=== PATIENT | female | born 1975 | race Caucasian/White ===

== ENCOUNTER → 2016-08-17 | Outpatient (CLI) | payer MEDICAID ==
[~2016-08-17] MED LIST: /DIVA50TA PO; /ESOM40CA; /ESOM40CA OR; /ESOM40CA PO; ABIL10TA; ABIL10TA OR; ABIL5TAB; ABIL5TAB OR; ABIL5TAB PO; ADV250INH INH; ALBU0.084 PO; ALBU17IN INH; ALBU83IN INH; ASPI81TA3; ASPI81TA83 OR; ASPI81TA85 PO; BENZ200C PO; CALC12502; CALCCHW12; CELE10TA PO; CIPR-250 PO; DEPA500T; DEPA500T OR; DEPA500T2; DEPA500T2 PO; DIPH25CA PO; DITR5TAB PO; DIVA500T3 PO; EFFE75CA75 OR; FEMA2.5T4 PO; FLOM5CAP PO; FLON0.05; HYDR25TA6; HYDR5TAB27 PO; IBUP800T23 PO; IBUP80TA PO; IPRASOL4 PO; LAMI25TA; LAMI25TA OR; LAMICTAL; LASI40TA PO; LETR2.5T PO; MILKSUS PO; NAPR375T; NAPR500T; NAPR500T2 PO; NEUR100C PO; NEXI40CA PO; NEXI40GR PO; NICO14DI3 TD; OMACOR; PERC10TA17 PO; PERC5TAB8 OR; PERC7.5T3 PO; PHEN200T14 PO; PHEN32.4; PHEN60TA; PHEN60TA OR; PHEN60TA9 PO; PHEN64.8; PHEN64.8 OR; PHEN64.8 PO; PRIL20CA; PRIL20CA OR; PROAAER IN; PROZ10CA; PROZ20CA; PROZ20CA OR; QUET30TA OR; QUET30XR OR; REME15TA; REME15TA OR; REME30TA; RISP1TAB3 PO; RISP1TAB41 PO; ROBA750T4 PO; SENO8.6T10 PO; SERO200T OR; SERO400T OR; SERO400T3 PO; SMZ-800T PO; SULF1TAB72 PO; TRAM50TA2 OR; TRAZ100T2 PO; TRAZ100T4 PO; TRAZ150T; TYLE325T5 PO; TYLENOL PO; VICO5TAB; VICO5TAB16 PO; VITMTA PO; VOLTAREN GEL; VOLTAREN PO; XANA0.5T PO; XANA1TAB2 PO; ZYPR5TAB2 PO; [UNRECOGNIZED DRUG - OTHER] INH; ibuprofen PO
== END ==
LOC: M PAIN 13:20
PROVIDERS: ATTEND Anesthesiology
DX: G89.29 Other chronic pain (principal); M47.817 Spondylosis without myelopathy or radiculopathy, lumbosacral region; M47.816 Spondylosis without myelopathy or radiculopathy, lumbar region; M47.812 Spondylosis without myelopathy or radiculopathy, cervical region; G40.919 Epilepsy, unspecified, intractable, without status epilepticus; G47.30 Sleep apnea, unspecified; F90.9 Attention-deficit hyperactivity disorder, unspecified type; F31.9 Bipolar disorder, unspecified; J44.9 Chronic obstructive pulmonary disease, unspecified; M19.90 Unspecified osteoarthritis, unspecified site; G43.909 Migraine, unspecified, not intractable, without status migrainosus; K21.9 Gastro-esophageal reflux disease without esophagitis; I49.9 Cardiac arrhythmia, unspecified; E66.9 Obesity, unspecified; Z68.41 Body mass index [BMI] 40.0-44.9, adult; Z88.0 Allergy status to penicillin; Z88.5 Allergy status to narcotic agent; Z91.030 Bee allergy status; F17.200 Nicotine dependence, unspecified, uncomplicated; Z79.899 Other long term (current) drug therapy; Z85.3 Personal history of malignant neoplasm of breast

== ENCOUNTER 2016-09-13 22:33 | Emergency (ER) | payer MEDICAID ==
[~2016-09-13] VITALS: Ht 167.6 cm; Wt 122.5 kg
[2016-09-13] MEDS ORDERED: PHEN64.8 PO ×2 (22:48)
[2016-09-13] MEDS ORDERED: DEPA1TAB3 PO (22:48)
[2016-09-13] MEDS ORDERED: letrozole PO (22:48)
[2016-09-13] MEDS ORDERED: COMBAER6 PO (22:48)
[2016-09-13] MEDS ORDERED: TRAZ50TA4 PO (22:48)
[2016-09-13] MEDS ORDERED: ANAS1TAB PO (22:48)
[2016-09-14 02:36] VITALS: BP 138/95
[2016-09-14] MEDS ORDERED: KETOROLAC 60 MG/2 ML VIAL (J1885) IM ONE (05:30)
[2016-09-14] MEDS ORDERED: KETOROLAC 30 MG/ML VIAL (J1885) As Ordered ONE (05:49)
--- NOTE | 2016-09-14 08:27 | REP ---
Clinical: Trauma. Injury. Technique: AP, lateral, bilateral oblique views left hand. Findings: Advanced osteoarthritic degenerative changes primarily involving the interphalangeal joints is appreciated. No obvious acute fracture or dislocation identified. No subcutaneous emphysema or radiodense foreign body. Impression: 1. 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 2. No obvious acute fracture or dislocation. Signed by Montrell Ruby MD 09/14/2016 08:19 A
== END 2016-09-14 06:47 | disposition home or self-care (01) ==
LOC: M ED 23:36
DX: S60.222A Contusion of left hand, initial encounter (principal); W22.8XXA Striking against or struck by other objects, initial encounter; Y92.018 Other place in single-family (private) house as the place of occurrence of the external cause; Y93.89 Activity, other specified; Y99.8 Other external cause status; J45.909 Unspecified asthma, uncomplicated; G40.909 Epilepsy, unspecified, not intractable, without status epilepticus; Z79.899 Other long term (current) drug therapy
CPT/HCPCS: 73130; 96372; 99282; J1885

== ENCOUNTER → 2016-09-19 | Outpatient (CLI) | payer MEDICAID ==
[~2016-09-19] MED LIST changes: +ANAS1TAB PO; +BUPIVACAINE HCL 0.25% 30 ML VIAL As Ordered ONE; +COMBAER6 PO; +DEPA1TAB3 PO; +ISOVUE-M 300 61% 15ML VIAL (Q9967) As Ordered ONE; +LIDOCAINE 1% SDV INJ 30 ML VIAL As Ordered ONE; +TRAZ50TA4 PO; +ePHEDrine SULFATE 25 MG/5 ML(5MG/ML) SYRINGE As Ordered ONE; +letrozole PO
--- NOTE | 2016-09-19 13:58 | REP ---
PARTIAL LUMBAR SPINE SERIES: Four views. HISTORY: Injection procedure for pain. 34 seconds of fluoroscopy time is reported. FINDINGS: A sequence of four last image hold fluoro spot images of the lumbar spine are presented documenting various needle positions and contrast injections associated with lumbar spine facet injection procedure. Signed by Kenny Sandoval MD 09/19/2016 06:05 P
--- NOTE | 2016-09-24 23:57 | ECWPNPC ---
PATIENT NAME: STEPHANIE BAIRES : 1975 GENDER: FEMALE VISIT DATE: 09/19/2016 DISCHARGE DATE: 09/19/16 1142 VISIT LOCKED DATE TIME: PHYSICIAN: CINTHYA DELGADO RESOURCE: CINTHYA DELGADO REASON FOR APPOINTMENT 1. LFBD HISTORY OF PRESENT ILLNESS HISTORY OF PRESENT ILLNESS: PAIN THE PATIENT DESCRIBES THE PAIN... FALL RISK SCREENING: SCREENING :NO FALLS IN THE PAST YEAR CURRENT MEDICATIONS TAKING CYCLOBENZAPRINE HCL 10 MG TABLET 1 TABLET ORALLY FOR SPASMS AMD PAIN THREE TIMES A DAY NEEDED MDD3, NOTES: 09-18-162099 TAKING EPIPEN 2-LATOYA 0.3 MG/0.3ML (1:1000) DEVICE INTRAMUSCULAR TAKING TRAZODONE 50 50MG TABLET TAB ORAL QHS NEEDED, NOTES: 09-18-162099 TAKING ANASTROZOLE 1 MG TABLET 1 TABLET ORALLY ONCE A DAY, NOTES: 09-20-15729 TAKING FLUOXETINE HCL 20 MG CAPSULE 1 CAPSULE IN THE MORNING ORALLY ONCE A DAY, NOTES: 09-19-16729 TAKING PHENOBARBITAL 64.8 MG TABLET 1 TABLET ORALLY THREE TIMES DAILY, NOTES: 09-19-16729 TAKING DEPAKOTE 500 MG TABLET DELAYED RELEASE TAKE TWO TABLETS BY MOUTH TWICE A DAY DIRECTED , NOTES: 09-19-16729 NOT-TAKING OMEPRAZOLE 40 MG CAPSULE DELAYED RELEASE 1 CAPSULE ORALLY ONCE A DAY NOT-TAKING COMBIVENT RESPIMAT 20-100 MCG/ACT AEROSOL SOLUTION 1 PUFF FOUR TIMES DAILY NEEDED DISCONTINUED NEXIUM 40 MG CAPSULE DELAYED RELEASE 1 CAPSULE ORALLY ONCE A DAY MEDICATION LIST REVIEWED AND RECONCILED WITH THE PATIENT PAST MEDICAL HISTORY ALLERGY TO BEE BREAST CANCER STAGE 1 SLEEP APNEA- USES CPAP MACHINE @2% 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 MORBID OBESITY CHRONIC PAIN ADHD BIPOLAR ASTHMA, COPD ATHRITIS DEPRESSION MIGRAINES GERD IRREGULAR HEART BEAT KIDNEY STONES ALLERGIES PENICILLIN (FOR ALLERGIES USE ONLY) CODEINE PHOSPHATE (FOR ALLERGIES USE ONLY): NAUSEA/VOMITING: SIDE EFFECTS TRAMADOL HCL: SEIZURES: ALLERGY BEE STINGS: SWELLING: ALLERGY SOCIAL HISTORY GENERAL: PAIN CLINIC PFS, CLERGY, PUBLIC HEALTH REFERRALS CLERGY REFERRAL NEEDED?NO WAS THE PROVIDER NOTIFIED OF ANY PERTINENT INFO?NO PFS REFERRAL NEEDED?NO PUBLIC HEALTH REFERRAL NEEDED?NO PATIENT: ____. REVIEW OF SYSTEMS CONSTITUTIONAL: ANY CHANGE IN YOUR MEDICAL CONDITION? NO . CHILLS NO . FEVER NO . INFECTION: DO YOU HAVE NEW INFECTIONS? NO . DO YOU HAVE HISTORY OF MRSA? NO . MUSCULOSKELETAL: ANY NEW PATTERNS OF PAIN OR NUMBNESS? NO . GASTROENTEROLOGY: ANY NEW CHANGE IN BOWEL CONTROL? NO . GENITOURINARY: ANY NEW CHANGE IN BLADDER CONTROL? YES . IS THERE A CHANCE YOU COULD BE ? NO . HEMATOLOGY/LYMPH: DO YOU TAKE ANY BLOOD THINNERS? (FOR EXAMPLE- COUMADIN, PLAVIX, AGGRENOX, PLATEL, PRADAXA, OR XARELTO) NO . WHEN WAS YOUR LAST DOSE? DATE: TIME: . NEUROLOGY: HAVE YOU FALLEN IN THE PAST 6 MONTHS? NO . ANY NEW EXTREMITY NUMBNESS OR WEAKNESS? NO . CARDIOLOGY: DO YOU HAVE A PACEMAKER OR DEFIBRILLATOR? NO . RESPIRATORY: HAVE YOU BEEN SICK IN THE PAST WEEK? NO . FEVER NO . FLU LIKE SYMPTOMS? NO . COUGH NO . INTEGUMENTARY: DO YOU HAVE ANY RASHES OR OPEN SORES? NO . ALLERGIC/IMMUNO: ARE YOU ALLERGIC TO SHELLFISH OR IV DYE? NO . ANY NEW ALLERGIES? NO . PSYCHIATRIC: DO YOU HAVE THOUGHTS OF HURTING YOURSELF OR SOMEONE ELSE? NO . ARE YOU ABUSED, NEGLECTED, OR IN AN UNSAFE ENVIRONMENT? NO . ENDOCRINOLOGY: ARE YOU DIABETIC? NO . OTHER: DO YOU NEED ANY PRESCRIPTIONS? NO . IF YES, PLEASE LIST: ____ . ANY NEW PROBLEMS WITH YOUR MEDICATIONS? NO . WHEN DID YOU LAST EAT? LAST NIGHT . WHEN DID YOU LAST DRINK? 09-19-16 0730 . WHAT DID YOU LAST DRINK? WATER . NAME OF PERSON DRIVING YOU HOME? FRIEND . DO YOU HAVE ANY OTHER QUESTIONS OR CONCERNS NO . REVIEWED BY: PROVIDER: . VITAL SIGNS WT 270.6 LBS, HT 5'6", BMI 43.67 INDEX, BP 138/87 MM HG, HR 91 /MIN, RR 18 /MIN, TEMP 97.2 F, OXYGEN SAT % 94%, NA INITIALS SC 09:23, REVIEWED BY: AAN. ASSESSMENTS SPONDYLOSIS WITHOUT MYELOPATHY OR RADICULOPATHY, LUMBAR REGION - M47.816 (PRIMARY) SPONDYLOSIS WITHOUT MYELOPATHY OR RADICULOPATHY, LUMBOSACRAL REGION - M47.817 PROCEDURES PN LUMBAR FACET BLOCK DIAGNOSTIC PRE PROCEDURE DIAGNOSIS LUMBAR SPONDYLOSIS, LUMBOSACRAL SPONDYLOSIS POST PROCEDURE DIAGNOSIS LUMBAR SPONDYLOSIS, LUMBOSACRAL SPONDYLOSIS PROCEDURE BILATERAL L4-L5 AND BILATERAL L5-S1 FACET BLOCK DIAGNOSTIC NUMBER [address] CINTHYA DELGADO ELECTRONIC SEMICONDUCTOR PROCESSOR NONE ANESTHESIA LOCAL PRE PROCEDURE NOTE THE PATIENT WITH HISTORY OF CHRONIC LOW BACK PAIN. I EVALUATED THE PATIENT AND REVIEWED THE CHART. I WENT OVER THE RISKS, ALTERNATIVES, AND BENEFITS ASSOCIATED WITH THIS PROCEDURE. THE PATIENT WOULD LIKE TO PROCEED AND GAVE CONSENT TO PERFORM THE PROCEDURE. AGREED WITH THE PATIENT WE ARE DOING THIS PROCEDURE TO DETERMINE IF THE PATIENT IS A CANDIDATE FOR A RADIOFREQUENCY ABLATION OF THE FACETS JOINTS. THE PATIENT DENIES UNEXPLAINABLE WEIGHT LOSS, FEVER, CHILLS, OR NEW CHANGES IN URINARY OR BOWEL CONTROL DESCRIPTION OF PROCEDURE THE PATIENT WAS BROUGHT TO THE PROCEDURE ROOM AND PLACED IN THE PRONE POSITION. THE LUMBOSACRAL AREA WAS CLEANED WITH CHLORAPREP SOLUTION AND DRAPED ASEPTICALLY. THE PROCEDURE WAS DONE UNDER STERILE CONDITIONS. I CHECKED LATERALITY AND THE LEVEL WHERE THE PROCEDURE WAS GOING TO BE PERFORMED WITH THE PATIENT AND THE SUPPORTING STAFF AT THE MOMENT OF THE TIME OUT IN THE PROCEDURE ROOM. UNDER FLUOROSCOPIC GUIDANCE, TARGETS WERE SELECTED AT THE INTERSECTION OF THE RIGHT AND LEFT TRANSVERSE PROCESS OF L4, L5 AND ALA OF S1 WITH ITS RESPECTIVE SUPERIOR ARTICULAR PROCESS. LIDOCAINE WAS USED TO NUMB THE SKIN AND THE SUBCUTANEOUS TISSUE BELOW IT. SPINAL NEEDLE, 22-GAUGE WAS ADVANCED UNDER FLUOROSCOPIC GUIDANCE AND FOLLOWING PATIENT FEEDBACK UNTIL THE TARGETS WERE REACHED. POSITION OF THE NEEDLES WAS VERIFIED WITH AP AND LATERAL VIEWS. AFTER PROPER POSITION OF THE NEEDLES WAS ACHIEVED, ISOVUE-M DYE 30% 0.1 ML WAS INJECTED AT EACH SITE SHOWING ADEQUATE SPREAD OF THE DYE. THEN A SOLUTION OF 0.4 ML OF BUPIVACAINE 0.25% WAS INJECTED AT EACH SITE. THERE WAS NO EVIDENCE OF BLOOD, PARESTHESIA OR CEREBROSPINAL FLUID DURING THE PROCEDURE. THE PATIENT WAS SENT TO THE RECOVERY ROOM. THE PATIENT WAS MOVING THE EXTREMITIES AND DOING WELL. THERE WAS NO COMPLICATION DURING THE PROCEDURE. FLUOROSCOPY TIME WAS 34 SECONDS POST PROCEDURE NOTE THE PATIENT WILL DOCUMENT HIS PAIN LEVEL AND RESPONSE TO THIS PROCEDURE EVERY 30 MINUTES. THE PATIENT WILL BE SEEN IN A FOLLOW UP IN THE NEXT FEW WEEKS. FURTHER DETERMINATION FOR HIS CASE WILL BE DONE AT THE NEXT VISIT. INSTRUCTIONS WERE GIVEN, QUESTIONS WERE ANSWERED, AND THE PATIENT EXPRESSED UNDERSTANDING AND AGREED WITH THE PLAN. I, JALEN YOUNGER, DOCUMENTED THE ABOVE INFORMATION ACTING A SCRIBE FOR DR. DELGADO. I, DR. DELGADO, HAVE REVIEWED THE ABOVE DOCUMENT, SCRIBED BY JALEN YOUNGER, AND I VERIFY THAT IT IS ACCURATE DIAGNOSTIC IMAGING SMC FACET BLOCK (PAIN)[id number] PROCEDURE CODES 15770 INJ PARAVERT F JNT L/S 1 LEV 56718 INJ PARAVERT F JNT L/S 2 LEV 6045F RADXPS IN END [id number] PXD DISPOSITION & COMMUNICATION FOLLOW UP 3 WEEKS ELECTRONICALLY SIGNED BY CINTHYA DELGADO MD ON 09/24/2016 AT 09:11 PM EDT DISCLAIMER : THIS IS A VISIT SUMMARY EXTRACTED FROM THE [employer] CHART. IT IS NOT A COPY OF THE [employer] PROGRESS NOTE. MTDD
== END ==
LOC: M PAIN 09:00
PROVIDERS: ATTEND Anesthesiology
DX: G89.29 Other chronic pain (principal); M54.5 Low back pain; M47.816 Spondylosis without myelopathy or radiculopathy, lumbar region; M47.817 Spondylosis without myelopathy or radiculopathy, lumbosacral region; Z79.899 Other long term (current) drug therapy; Z88.0 Allergy status to penicillin; Z88.5 Allergy status to narcotic agent; Z88.8 Allergy status to other drugs, medicaments and biological substances; Z91.030 Bee allergy status; J44.9 Chronic obstructive pulmonary disease, unspecified; G40.909 Epilepsy, unspecified, not intractable, without status epilepticus; F31.9 Bipolar disorder, unspecified
CPT/HCPCS: 64493; 64494; Q9967

== ENCOUNTER → 2016-10-11 | Outpatient (CLI) | payer MEDICAID ==
[~2016-10-11] MED LIST changes: -BUPIVACAINE HCL 0.25% 30 ML VIAL As Ordered ONE; -ISOVUE-M 300 61% 15ML VIAL (Q9967) As Ordered ONE; -LIDOCAINE 1% SDV INJ 30 ML VIAL As Ordered ONE; -ePHEDrine SULFATE 25 MG/5 ML(5MG/ML) SYRINGE As Ordered ONE
--- NOTE | 2016-10-16 00:13 | ECWPNPC ---
PATIENT NAME: STEPHANIE BAIRES : 1975 GENDER: FEMALE VISIT DATE: 10/11/2016 DISCHARGE DATE: 10/11/16 1646 VISIT LOCKED DATE TIME: PHYSICIAN: CINTHYA DELGADO RESOURCE: CINTHYA DELGADO REASON FOR APPOINTMENT 1. LOW BACK PAIN HISTORY OF PRESENT ILLNESS HISTORY OF PRESENT ILLNESS: PAIN THE PATIENT DESCRIBES THE PAIN... 41 YEAR OLD FEMALE PATIENT WITH HISTORY OF CHRONIC LOW BACK PAIN. PATIENT DESCRIBES THE PAIN SHARP, STABBING, TENDER, AND HAVING IT ALL THE TIME WITH A PAIN SCORE OF 10/10. PATIENT DECEIVED A DIAGNOSTIC LUMBAR FACET BLOCK ON 09/19/16 AND HAD OVER 50% RELIEF FOR SEVERAL HOURS. PATIENT IS CURRENTLY USING CYCLOBENZAPRINE FOR THE MUSCLE SPASMS AND PAIN. PATIENT STATES THAT SHE HAS TRIED IBUPROFEN AND NAPROXEN AND THEY HAVE NOT HELPED WITH PAIN RELIEF. PATIENT DENIES UNEXPLAINABLE WEIGHT LOSS, FEVER, CHILLS, NEW CHANGES ON HER URINARY OR BOWEL CONTROL. FALL RISK SCREENING: SCREENING :NO FALLS IN THE PAST YEAR CURRENT MEDICATIONS TAKING CYCLOBENZAPRINE HCL 10 MG TABLET 1 TABLET ORALLY FOR SPASMS AMD PAIN THREE TIMES A DAY NEEDED MDD3, NOTES: NOT HELPING AT ALL TAKING TRAZODONE 50 50MG TABLET TAB ORAL QHS NEEDED, NOTES: DOES NOT WORK TAKING ANASTROZOLE 1 MG TABLET 1 TABLET ORALLY ONCE A DAY TAKING FLUOXETINE HCL 20 MG CAPSULE 1 CAPSULE IN THE MORNING ORALLY ONCE A DAY TAKING PHENOBARBITAL 64.8 MG TABLET 1 TABLET ORALLY THREE TIMES DAILY TAKING DEPAKOTE 500 MG TABLET DELAYED RELEASE TAKE TWO TABLETS BY MOUTH TWICE A DAY DIRECTED TAKING OMEPRAZOLE 40 MG CAPSULE DELAYED RELEASE 1 CAPSULE ORALLY ONCE A DAY TAKING EPIPEN 2-LATOYA 0.3 MG/0.3ML (1:1000) DEVICE ONE APPLICATION INTRAMUSCULAR DIRECTED TAKING COMBIVENT RESPIMAT 20-100 MCG/ACT AEROSOL SOLUTION 1 PUFF FOUR TIMES DAILY NEEDED MEDICATION LIST REVIEWED AND RECONCILED WITH THE PATIENT PAST MEDICAL HISTORY ALLERGY TO BEE BREAST CANCER STAGE 1 SLEEP APNEA- USES CPAP MACHINE @2% 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 MORBID OBESITY CHRONIC PAIN ADHD BIPOLAR ASTHMA, COPD ATHRITIS DEPRESSION MIGRAINES GERD IRREGULAR HEART BEAT KIDNEY STONES ALLERGIES PENICILLIN (FOR ALLERGIES USE ONLY) CODEINE PHOSPHATE (FOR ALLERGIES USE ONLY): NAUSEA/VOMITING: SIDE EFFECTS TRAMADOL HCL: SEIZURES: ALLERGY BEE STINGS: SWELLING: ALLERGY PLASTIC TAPE: ITCHING: ALLERGY SURGICAL HISTORY HYSTERECTOMY CHOLESTECTOMY APPENDECTOMY RIGHT TOTAL KNEE CYSTOSCOPY, URETEROSCOPY, STENT PLACEMENT 07/29/14 LEFT BREAST REMOVAL 07/16/15 RIGHT KNEE SURGERY 2006,2007 TEETH EXTRACTIONS FAMILY HISTORY FATHER: 59 YRS, DIAGNOSED WITH CANCER MOTHER: ALIVE 62 YRS, DIAGNOSED WITH DIABETES, CANCER 4DAUGHTER(S) - HEALTHY. FATHER-RECTAL CA MOTHER--UTERINE CA. SOCIAL HISTORY GENERAL: PAIN CLINIC PFS, CLERGY, PUBLIC HEALTH REFERRALS CLERGY REFERRAL NEEDED?NO WAS THE PROVIDER NOTIFIED OF ANY PERTINENT INFO?NO PFS REFERRAL NEEDED?NO PUBLIC HEALTH REFERRAL NEEDED?NO PATIENT: ____. HOSPITALIZATION/MAJOR DIAGNOSTIC PROCEDURE MENTAL HEALTH IRREGUALAR HEART RATE REVIEW OF SYSTEMS CONSTITUTIONAL: ANY CHANGE IN YOUR MEDICAL CONDITION? NO . CHILLS NO . FEVER NO . INFECTION: DO YOU HAVE NEW INFECTIONS? NO . DO YOU HAVE HISTORY OF MRSA? NO . MUSCULOSKELETAL: ANY NEW PATTERNS OF PAIN OR NUMBNESS? NO . GASTROENTEROLOGY: ANY NEW CHANGE IN BOWEL CONTROL? NO . GENITOURINARY: ANY NEW CHANGE IN BLADDER CONTROL? NO . IS THERE A CHANCE YOU COULD BE ? NO . HEMATOLOGY/LYMPH: DO YOU TAKE ANY BLOOD THINNERS? (FOR EXAMPLE- COUMADIN, PLAVIX, AGGRENOX, PLATEL, PRADAXA, OR XARELTO) NO . WHEN WAS YOUR LAST DOSE? DATE: TIME: . NEUROLOGY: HAVE YOU FALLEN IN THE PAST 6 MONTHS? NO . ANY NEW EXTREMITY NUMBNESS OR WEAKNESS? NO . CARDIOLOGY: DO YOU HAVE A PACEMAKER OR DEFIBRILLATOR? NO . RESPIRATORY: HAVE YOU BEEN SICK IN THE PAST WEEK? NO . FEVER NO . FLU LIKE SYMPTOMS? NO . COUGH NO . INTEGUMENTARY: DO YOU HAVE ANY RASHES OR OPEN SORES? NO . ALLERGIC/IMMUNO: ARE YOU ALLERGIC TO SHELLFISH OR IV DYE? NO . ANY NEW ALLERGIES? NO . PSYCHIATRIC: DO YOU HAVE THOUGHTS OF HURTING YOURSELF OR SOMEONE ELSE? NO . ARE YOU ABUSED, NEGLECTED, OR IN AN UNSAFE ENVIRONMENT? NO . ENDOCRINOLOGY: ARE YOU DIABETIC? NO . OTHER: DO YOU NEED ANY PRESCRIPTIONS? NO . IF YES, PLEASE LIST: ____ . ANY NEW PROBLEMS WITH YOUR MEDICATIONS? NO . WHEN DID YOU LAST EAT? ____ . WHEN DID YOU LAST DRINK? ____ . WHAT DID YOU LAST DRINK? ____ . NAME OF PERSON DRIVING YOU HOME? ____ . DO YOU HAVE ANY OTHER QUESTIONS OR CONCERNS NO . REVIEWED BY: PROVIDER: CINTHYA DELGADO MD . VITAL SIGNS WT 268.2 LBS, HT 5'6", BMI 43.28 INDEX, BP 151/87 MM HG, HR 105 /MIN, RR 16 /MIN, TEMP 96.5 F, OXYGEN SAT % 94%, NA INITIALS TL 1445. EXAMINATION : PATIENT IS ALERT O X 3 AND COOPERATIVE. TENDERNESS IN THE LOWER BACK AND PARASPINAL MUSCLE GROUP. MRI OF THE LUMBAR SPINE DONE ON 03/03/16 SHOWS MILD DEGNERATIVE DISC DISEASE AT L1-L2 AND L2-L3 ALONG WITH OSTEOARTHRITIC CHANGES IN THE FACET JOINTS. ASSESSMENTS SPONDYLOSIS WITHOUT MYELOPATHY OR RADICULOPATHY, LUMBAR REGION - M47.816 (PRIMARY) SPONDYLOSIS WITHOUT MYELOPATHY OR RADICULOPATHY, LUMBOSACRAL REGION - M47.817 MYALGIA - M79.1 TREATMENT SPONDYLOSIS WITHOUT MYELOPATHY OR RADICULOPATHY, LUMBAR REGION NOTES: WE DISCUSSED SEVERAL ISSUES WITH MRS. BAIRES'S PAIN MANAGEMENT CASE. AT THIS TIME THE PATIENT WILL USE CYCLOBENZAPRINE AT NIGHT TO AID IN SLEEPING AND THE MUSCLE SPASMS AND CELEBREX FOR THE SOMATIC PAIN THROUGHOUT THE DAY. PATIENT WAS ADVISED TO STOP THE MEDICATION IF ANY ADVERSE SIDE EFFECTS. WE DISCUSSED MOVING FORWARD WITH THE SECOND DIAGNOSTIC BLOCK TO MOVE FORWARD WITH A RADIOFREQUENCY. WE DISCUSSED THE RISKS, BENENFITS, AND ALTNERATIVES OF THE MEDICATIONS AND THE PATIENT WOULD LIKE TO PROCEED AT THIS TIME. INSTRUCTIONS WERE GIVEN, QUESTIONS WERE ANSWERED, PATIENT REPORTS UNDERSTANDING AND AGREES WITH THE PLAN. I, JALEN YOUNGER, DOCUMENTED THE ABOVE INFORMATION ACTING A SCRIBE FOR DR. DELGADO. I HAVE REVIEWED THE ABOVE DOCUMENT, WRITTEN BY JALEN GOMEZ AND I VERIFY THAT IT IS ACCURATE. OTHERS REFILL CYCLOBENZAPRINE HCL TABLET, 10 MG, 1 TABLET, ORALLY FOR SPASMS AMD PAIN, BEFORE BEDTIME, 30 DAY(S), 30, REFILLS 2, NOTES: NOT HELPING AT ALL START CELEBREX CAPSULE, 200 MG, 1 CAPSULE WITH FOOD, ORALLY FOR PAIN, ONCE A DAY MDD1, 30 DAY(S), 30, REFILLS 1 PREVENTIVE MEDICINE REVIEWED FACET INFO AND GAVE PT PREPROCEDURE CARE INSTRUCTIONS. PROCEDURE CODES FA211 ESTABILISHED PATIENT [facility] FACILITY CHARGE G8427 DOC MEDS VERIFIED W/PT OR RE G8730 PAIN ASSESS POS TOOL F/U PLAN DOC DISPOSITION & COMMUNICATION FOLLOW UP LFBD AFTER APPROVAL ELECTRONICALLY SIGNED BY CINTHYA DELGADO MD ON 10/15/2016 AT 12:29 PM EDT DISCLAIMER : THIS IS A VISIT SUMMARY EXTRACTED FROM THE [employer] CHART. IT IS NOT A COPY OF THE [employer] PROGRESS NOTE. MTDD
== END ==
LOC: M PAIN 14:20
PROVIDERS: ATTEND Anesthesiology
DX: M47.816 Spondylosis without myelopathy or radiculopathy, lumbar region (principal); M47.817 Spondylosis without myelopathy or radiculopathy, lumbosacral region; M79.1 Myalgia; M54.5 Low back pain; G89.29 Other chronic pain; Z79.891 Long term (current) use of opiate analgesic; J44.9 Chronic obstructive pulmonary disease, unspecified; G47.33 Obstructive sleep apnea (adult) (pediatric); G40.909 Epilepsy, unspecified, not intractable, without status epilepticus; F31.9 Bipolar disorder, unspecified; Z79.899 Other long term (current) drug therapy; Z88.0 Allergy status to penicillin; Z88.5 Allergy status to narcotic agent; Z88.8 Allergy status to other drugs, medicaments and biological substances; Z91.030 Bee allergy status; Z91.040 Latex allergy status

== ENCOUNTER → 2016-10-24 | Outpatient (CLI) | payer MEDICAID ==
[~2016-10-24] MED LIST changes: +BUPIVACAINE HCL 0.25% 30 ML VIAL As Ordered ONE; +ISOVUE-M 300 61% 15ML VIAL (Q9967) As Ordered ONE; +LIDOCAINE 1% SDV INJ 30 ML VIAL As Ordered ONE; +ZOFR4TAB3 PO
--- NOTE | 2016-10-24 16:08 | REP ---
Partial lumbar spine series: Two views: History: Lumbar spine facet injection for pain. 28 seconds of fluoroscopy time is reported. Findings: A sequence of two fluoroscopically obtained intraprocedural spot radiographs of the lumbar spine document various right facet needle positions and contrast injections associated with facet injection procedure. Signed by Kenny Sandoval MD 10/24/2016 04:40 P
--- NOTE | 2016-11-07 01:20 | ECWPNPC ---
PATIENT NAME: STEPHANIE BAIRES : 1975 GENDER: FEMALE VISIT DATE: 10/24/2016 DISCHARGE DATE: 10/24/16 1337 VISIT LOCKED DATE TIME: PHYSICIAN: CINTHYA DELGADO RESOURCE: CINTHYA DELGADO REASON FOR APPOINTMENT 1. LFBD #2 HISTORY OF PRESENT ILLNESS HISTORY OF PRESENT ILLNESS: PAIN THE PATIENT DESCRIBES THE PAIN... FALL RISK SCREENING: SCREENING :NO FALLS IN THE PAST YEAR CURRENT MEDICATIONS TAKING TRAZODONE 50 50MG TABLET TAB ORAL QHS NEEDED, NOTES: 10-23-162099 TAKING FLUOXETINE HCL 20 MG CAPSULE 1 CAPSULE IN THE MORNING ORALLY ONCE A DAY, NOTES: 10-24-16899 TAKING PHENOBARBITAL 64.8 MG TABLET 1 TABLET ORALLY THREE TIMES DAILY, NOTES: 10-23-162099 TAKING DEPAKOTE 500 MG TABLET DELAYED RELEASE TAKE TWO TABLETS BY MOUTH TWICE A DAY DIRECTED , NOTES: 10-23-16899 TAKING OMEPRAZOLE 40 MG CAPSULE DELAYED RELEASE 1 CAPSULE ORALLY ONCE A DAY, NOTES: 10-24-16899 TAKING EPIPEN 2-LATOYA 0.3 MG/0.3ML (1:1000) DEVICE ONE APPLICATION INTRAMUSCULAR DIRECTED TAKING COMBIVENT RESPIMAT 20-100 MCG/ACT AEROSOL SOLUTION 1 PUFF FOUR TIMES DAILY NEEDED, NOTES: NONE NEEDED TAKING CYCLOBENZAPRINE HCL 10 MG TABLET 1 TABLET ORALLY FOR SPASMS AMD PAIN BEFORE BEDTIME, NOTES: 10-23-162099 TAKING CELEBREX 200 MG CAPSULE 1 CAPSULE WITH FOOD ORALLY FOR PAIN ONCE A DAY MDD1, NOTES: 10-23-162099 TAKING IBUPROFEN 800 MG TABLET 1 TABLET WITH FOOD OR MILK ORALLY BID NEEDED FOR PAIN MDD2, NOTES: NONE NOT WORKING TAKING ANASTROZOLE 1 MG TABLET 1 TABLET ORALLY ONCE A DAY, NOTES: 10-24-16899 DISCONTINUED TRAZODONE HCL 50 MG TABLET 1 TABLET AT BEDTIME NEEDED ORALLY QHS MEDICATION LIST REVIEWED AND RECONCILED WITH THE PATIENT PAST MEDICAL HISTORY ALLERGY TO BEE BREAST CANCER STAGE 1 SLEEP APNEA- USES CPAP MACHINE @2% 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 NO . CHILLS NO . FEVER NO . INFECTION: DO YOU HAVE NEW INFECTIONS? NO . DO YOU HAVE HISTORY OF MRSA? NO . MUSCULOSKELETAL: ANY NEW PATTERNS OF PAIN OR NUMBNESS? NO . GASTROENTEROLOGY: ANY NEW CHANGE IN BOWEL CONTROL? NO . GENITOURINARY: ANY NEW CHANGE IN BLADDER CONTROL? NO . IS THERE A CHANCE YOU COULD BE ? NO . HEMATOLOGY/LYMPH: DO YOU TAKE ANY BLOOD THINNERS? (FOR EXAMPLE- COUMADIN, PLAVIX, AGGRENOX, PLATEL, PRADAXA, OR XARELTO) NO . WHEN WAS YOUR LAST DOSE? DATE: TIME: . NEUROLOGY: HAVE YOU FALLEN IN THE PAST 6 MONTHS? NO . ANY NEW EXTREMITY NUMBNESS OR WEAKNESS? NO . CARDIOLOGY: DO YOU HAVE A PACEMAKER OR DEFIBRILLATOR? NO . RESPIRATORY: HAVE YOU BEEN SICK IN THE PAST WEEK? NO . FEVER NO . FLU LIKE SYMPTOMS? NO . COUGH NO . INTEGUMENTARY: DO YOU HAVE ANY RASHES OR OPEN SORES? NO . ALLERGIC/IMMUNO: ARE YOU ALLERGIC TO SHELLFISH OR IV DYE? NO . ANY NEW ALLERGIES? NO . PSYCHIATRIC: DO YOU HAVE THOUGHTS OF HURTING YOURSELF OR SOMEONE ELSE? NO . ARE YOU ABUSED, NEGLECTED, OR IN AN UNSAFE ENVIRONMENT? NO . ENDOCRINOLOGY: ARE YOU DIABETIC? NO . OTHER: DO YOU NEED ANY PRESCRIPTIONS? NO . IF YES, PLEASE LIST: ____ . ANY NEW PROBLEMS WITH YOUR MEDICATIONS? NO . WHEN DID YOU LAST EAT? 10-23-16 PM . WHEN DID YOU LAST DRINK? 10-24-16 0900 . WHAT DID YOU LAST DRINK? [employer] DEW . NAME OF PERSON DRIVING YOU HOME? TRANSPORTATION . DO YOU HAVE ANY OTHER QUESTIONS OR CONCERNS NO . REVIEWED BY: PROVIDER: . VITAL SIGNS WT 268.2 LBS, HT 5'6", BMI 43.28 INDEX, BP 136/90 MM HG, HR 88 /MIN, RR 18 /MIN, TEMP 96.6 F, OXYGEN SAT % 94%, NA INITIALS SC 11:45, REVIEWED BY: CM. ASSESSMENTS SPONDYLOSIS WITHOUT MYELOPATHY OR RADICULOPATHY, LUMBOSACRAL REGION - M47.817 (PRIMARY) SPONDYLOSIS WITHOUT MYELOPATHY OR RADICULOPATHY, LUMBAR REGION - M47.816 PROCEDURES PN LUMBAR FACET BLOCK DIAGNOSTIC PRE PROCEDURE DIAGNOSIS LUMBAR SPONDYLOSIS, LUMBOSACRAL SPONDYLOSIS POST PROCEDURE DIAGNOSIS LUMBAR SPONDYLOSIS, LUMBOSACRAL SPONDYLOSIS PROCEDURE RIGHT L4-L5 AND L5-S1 FACET BLOCK DIAGNOSTIC NUMBER #[address] CINTHYA DELGADO HORTICULTURAL AGENT NONE ANESTHESIA LOCAL PRE PROCEDURE NOTE THE PATIENT WITH HISTORY OF CHRONIC LOW BACK PAIN. I EVALUATED THE PATIENT AND REVIEWED THE CHART. I WENT OVER THE RISKS, ALTERNATIVES, AND BENEFITS ASSOCIATED WITH THIS PROCEDURE. THE PATIENT WOULD LIKE TO PROCEED AND GAVE CONSENT TO PERFORM THE PROCEDURE. AGREED WITH THE PATIENT WE ARE DOING THIS PROCEDURE TO DETERMINE IF THE PATIENT IS A CANDIDATE FOR A RADIOFREQUENCY ABLATION OF THE FACETS JOINTS. THE PATIENT DENIES UNEXPLAINABLE WEIGHT LOSS, FEVER, CHILLS, OR NEW CHANGES IN URINARY OR BOWEL CONTROL DESCRIPTION OF PROCEDURE THE PATIENT WAS BROUGHT TO THE PROCEDURE ROOM AND PLACED IN THE PRONE POSITION. THE LUMBOSACRAL AREA WAS CLEANED WITH CHLORAPREP SOLUTION AND DRAPED ASEPTICALLY. THE PROCEDURE WAS DONE UNDER STERILE CONDITIONS. I CHECKED LATERALITY AND THE LEVEL WHERE THE PROCEDURE WAS GOING TO BE PERFORMED WITH THE PATIENT AND THE SUPPORTING STAFF AT THE MOMENT OF THE TIME OUT IN THE PROCEDURE ROOM. UNDER FLUOROSCOPIC GUIDANCE, TARGETS WERE SELECTED AT THE INTERSECTION OF THE RIGHT TRANSVERSE PROCESS OF L4, L5 AND ALA OF S1 WITH ITS RESPECTIVE SUPERIOR ARTICULAR PROCESS. LIDOCAINE WAS USED TO NUMB THE SKIN AND THE SUBCUTANEOUS TISSUE BELOW IT. SPINAL NEEDLE, 22-GAUGE WAS ADVANCED UNDER FLUOROSCOPIC GUIDANCE AND FOLLOWING PATIENT FEEDBACK UNTIL THE TARGETS WERE REACHED. POSITION OF THE NEEDLES WAS VERIFIED WITH AP AND LATERAL VIEWS. AFTER PROPER POSITION OF THE NEEDLES WAS ACHIEVED, ISOVUE-M DYE 30% 0.1 ML WAS INJECTED AT EACH SITE SHOWING ADEQUATE SPREAD OF THE DYE. THEN A SOLUTION OF 0.4 ML OF BUPIVACAINE 0.25% WAS INJECTED AT EACH SITE. THERE WAS NO EVIDENCE OF BLOOD, PARESTHESIA OR CEREBROSPINAL FLUID DURING THE PROCEDURE. THE PATIENT WAS SENT TO THE RECOVERY ROOM. THE PATIENT WAS MOVING THE EXTREMITIES AND DOING WELL. THERE WAS NO COMPLICATION DURING THE PROCEDURE. FLUOROSCOPY TIME WAS 28 SECONDS POST PROCEDURE NOTE THE PATIENT WILL DOCUMENT HIS PAIN LEVEL AND RESPONSE TO THIS PROCEDURE EVERY 30 MINUTES. THE PATIENT WILL BE SEEN IN A FOLLOW UP IN THE NEXT FEW WEEKS. FURTHER DETERMINATION FOR HIS CASE WILL BE DONE AT THE NEXT VISIT. INSTRUCTIONS WERE GIVEN, QUESTIONS WERE ANSWERED, AND THE PATIENT EXPRESSED UNDERSTANDING AND AGREED WITH THE PLAN. I, RIZWAN CHACON, DOCUMENTED THE ABOVE INFORMATION ACTING A SCRIBE FOR DR. DELGADO. I HAVE REVIEWED THE ABOVE DOCUMENT, WRITTEN BY RIZWAN PHILIPIBAshley AND I VERIFY THAT IT IS ACCURATE DIAGNOSTIC IMAGING SMC FACET BLOCK (PAIN)[id number] PROCEDURE CODES 72798 INJ PARAVERT F JNT L/S 1 LEV 77068 INJ PARAVERT F JNT L/S 2 LEV 6045F RADXPS IN END [id number] PXD DISPOSITION & COMMUNICATION FOLLOW UP 3 WEEKS ELECTRONICALLY SIGNED BY CINTHYA DELGADO MD ON 11/06/2016 AT 06:27 PM EDT DISCLAIMER : THIS IS A VISIT SUMMARY EXTRACTED FROM THE [employer] CHART. IT IS NOT A COPY OF THE [employer] PROGRESS NOTE. MTDD
== END ==
LOC: M PAIN 11:40
PROVIDERS: ATTEND Anesthesiology
DX: G89.29 Other chronic pain (principal); M47.817 Spondylosis without myelopathy or radiculopathy, lumbosacral region; M47.816 Spondylosis without myelopathy or radiculopathy, lumbar region; G47.30 Sleep apnea, unspecified; R56.9 Unspecified convulsions; E66.9 Obesity, unspecified; F90.9 Attention-deficit hyperactivity disorder, unspecified type; F31.9 Bipolar disorder, unspecified; J44.9 Chronic obstructive pulmonary disease, unspecified; M19.90 Unspecified osteoarthritis, unspecified site; G43.909 Migraine, unspecified, not intractable, without status migrainosus; K21.9 Gastro-esophageal reflux disease without esophagitis; Z68.41 Body mass index [BMI] 40.0-44.9, adult; Z91.030 Bee allergy status; Z88.0 Allergy status to penicillin; Z88.5 Allergy status to narcotic agent; L23.1 Allergic contact dermatitis due to adhesives
CPT/HCPCS: 64493; 64494; Q9967

== ENCOUNTER 2016-11-09 16:27 | Emergency (ER) | payer MEDICAID ==
[~2016-11-09] VITALS: Ht 167.6 cm; Wt 121.6 kg
[~2016-11-09 16:27] MED LIST changes: -BUPIVACAINE HCL 0.25% 30 ML VIAL As Ordered ONE; -ISOVUE-M 300 61% 15ML VIAL (Q9967) As Ordered ONE; -LIDOCAINE 1% SDV INJ 30 ML VIAL As Ordered ONE; -ZOFR4TAB3 PO
[2016-11-09 17:43] LABS: CONTROL LINE UCG INT CTR LINE PRESENT
[2016-11-09] MEDS ORDERED: MORPHINE 4 MG/ML 1ML SYRINGE IV ONE (17:45)
[2016-11-09] MEDS ORDERED: NS 1,000 ML IV ONE (17:45)
[2016-11-09] MEDS ORDERED: ONDANSETRON 4MG/2ML VIAL (J2405) IV ONE (17:45)
[2016-11-09 18:20] LABS: BASO % 0.2 % (0.0-1.0); EOS # 0.1 K/mm3 (0.0-0.50); EOS % 1.6 % (0.0-3.0); LARGE UNSTAINED CELL # 0.1 K/mm3 (0.0-0.4); LARGE UNSTAINED CELL % 1.7 % (0.0-4.0); LYMPH # 2.6 K/mm3 (1.5-4.5); LYMPH % 38.7 % (24.0-44.0); MEAN CORPUSCULAR HEMOGLOBIN 30.8 pg (27.0-33.0); MEAN CORPUSCULAR HGB CONC 34.8 g/dl (32.0-36.5); MEAN CORPUSCULAR VOLUME 88.4 fl (80.0-96.0); MONO # 0.3 K/mm3 (0.0-0.8); MONO % 4.8 % (0.0-5.0); NEUTROPHILS # 3.6 K/mm3 (1.8-7.7); PLATELET COUNT, AUTOMATED 319 k/mm3 (150-450); RED CELL DISTRIBUTION WIDTH 13.1 % (11.5-14.5); WHITE BLOOD COUNT 6.8 K/mm3 (4.0-10.0)
[2016-11-09 18:44] LABS: ALBUMIN 3.2 GM/DL (3.2-5.2); ALBUMIN/GLOBULIN RATIO 0.82 (1.00-1.93); ALKALINE PHOSPHATASE 141 U/L (45-117); ALT/SGPT 19 U/L (12-78); AMYLASE 39 U/L (25-115); ANION GAP 6 MEQ/L (8-16); AST/SGOT 8 U/L (15-37); BILIRUBIN,DIRECT < 0.1 MG/DL (0.0-0.2); BILIRUBIN,TOTAL 0.2 MG/DL (0.2-1.0); BLOOD UREA NITROGEN 9 MG/DL (7-18); CALCIUM LEVEL 8.7 MG/DL (8.5-10.1); CARBON DIOXIDE LEVEL 26 MEQ/L (21-32); CHLORIDE LEVEL 107 MEQ/L (98-107); CREATININE FOR GFR 0.49 MG/DL (0.55-1.02); GLOMERULAR FILTRATION RATE > 60.0 (>58); GLUCOSE, FASTING 89 MG/DL (70-105); POTASSIUM SERUM 4.2 MEQ/L (3.5-5.1); SODIUM LEVEL 139 MEQ/L (136-145); TOTAL PROTEIN 7.1 GM/DL (6.4-8.2)
[2016-11-09] MEDS ORDERED: ISOVUE-370 76% 100ML VIAL (Q9967) As Ordered ONE (18:46)
--- NOTE | 2016-11-09 19:14 | REP ---
Clinical: Lower abdominal pain. Technique: Axial contrast enhanced images from the lung bases to the pubic symphysis using 100 ml Isovue 370 intravenous contrast material with coronal and sagittal re-formations. Comparison: 07/05/2009. Findings: Lung bases are clear. Visualized heart and pericardium normal. Liver, spleen, pancreas, bilateral adrenal glands and kidneys are normal. The patient is status post cholecystectomy, appendectomy, hysterectomy and anterior abdominal wall surgery. The enteric system is without obstruction or acute inflammatory process. Few scattered sigmoid diverticula noted without acute diverticulitis. Terminal ileum is normal. No pelvic fluid or ascites. No adenopathy. No mass lesion. Vasculature is normal. Musculoskeletal structures are intact. Impression: No acute intra-abdominal or pelvic pathology appreciated. Signed by Montrell Ruby MD 11/09/2016 07:06 P
[2016-11-09] MEDS ORDERED: ZOFR4TAB3 PO (19:34)
[2016-11-09] MEDS ORDERED: KETOROLAC 30 MG/ML VIAL (J1885) IV ONE (19:45)
[2016-11-09 20:07] VITALS: BP 134/91
== END 2016-11-09 20:15 | disposition home or self-care (01) ==
LOC: M ED 17:28
DX: R10.84 Generalized abdominal pain (principal); R11.2 Nausea with vomiting, unspecified
CPT/HCPCS: 36415; 74177; 80048; 80076; 81001; 82150; 83690; 84703; 85025; 96374; 96375; 99283; J1885; J2405; Q9967

== ENCOUNTER 2017-02-21 12:17 | Emergency (ER) | payer MEDICAID ==
[~2017-02-21] VITALS: Ht 167.6 cm; Wt 121.3 kg
[~2017-02-21 12:17] MED LIST changes: +IBUP1TAB7 PO; -IBUP800T23 PO; -LETR2.5T PO; +LETR2.5T2 PO; -PERC10TA17 PO; +PERC10TA26 PO; +PERC7.5T11 PO; -PERC7.5T3 PO; -RISP1TAB41 PO; +RISP1TAB42 PO; +TRAZ-136 PO; -TRAZ100T4 PO; +TRAZ50TA11 PO; -TRAZ50TA4 PO; +ZOFR4TAB3 PO
[2017-02-21] MEDS ORDERED: MORPHINE 4 MG/ML 1ML SYRINGE IV ONE (12:45)
[2017-02-21 14:12] LABS: BASO % 0.4 % (0.0-1.0); LARGE UNSTAINED CELL # 0.1 K/mm3 (0.0-0.4); LARGE UNSTAINED CELL % 2.3 % (0.0-4.0); LYMPH # 2.5 K/mm3 (1.5-4.5); LYMPH % 49.7 % (24.0-44.0); MEAN CORPUSCULAR HEMOGLOBIN 30.5 pg (27.0-33.0); MEAN CORPUSCULAR HGB CONC 34.5 g/dl (32.0-36.5); MEAN CORPUSCULAR VOLUME 88.4 fl (80.0-96.0); MONO # 0.3 K/mm3 (0.0-0.8); MONO % 6.1 % (0.0-5.0); NEUTROPHILS % 40.5 % (36.0-66.0); PLATELET COUNT, AUTOMATED 273 k/mm3 (150-450)
[2017-02-21 14:23] LABS: METHADONE URINE NEGATIVE (NEGATIVE)
--- NOTE | 2017-02-21 14:31 | REP ---
PORTABLE CHEST X-RAY: Single view. HISTORY: Syncope versus seizure. FINDINGS: The lungs are well inflated. No infiltrate is seen. Pleural angles are sharp. Heart is not enlarged. Cardiomediastinal silhouette is unchanged from the February 23, 2016 prior study. There are old healed rib fractures on the left unchanged. IMPRESSION: No acute infiltrate. Signed by Kenny Sandoval MD 02/21/2017 06:34 P
[2017-02-21 14:43] LABS: ALBUMIN 3.3 GM/DL (3.2-5.2); ALBUMIN/GLOBULIN RATIO 0.89 (1.00-1.93); ALKALINE PHOSPHATASE 129 U/L (45-117); ALT/SGPT 27 U/L (12-78); ANION GAP 9 MEQ/L (8-16); AST/SGOT 12 U/L (15-37); BILIRUBIN,DIRECT < 0.1 MG/DL (0.0-0.2); BILIRUBIN,TOTAL 0.2 MG/DL (0.2-1.0); BLOOD UREA NITROGEN 7 MG/DL (7-18); CALCIUM LEVEL 8.6 MG/DL (8.5-10.1); CARBON DIOXIDE LEVEL 25 MEQ/L (21-32); CHLORIDE LEVEL 108 MEQ/L (98-107); CREATININE FOR GFR 0.44 MG/DL (0.55-1.02); GLOMERULAR FILTRATION RATE > 60.0 (>58); GLUCOSE, FASTING 82 MG/DL (70-105); MAGNESIUM LEVEL 2.2 MG/DL (1.8-2.4); PHENOBARBITAL LEVEL 42.7 UG/ML (15.0-40.0); PHOSPHORUS LEVEL 3.5 MG/DL (2.5-4.9); POTASSIUM SERUM 4.5 MEQ/L (3.5-5.1); SODIUM LEVEL 142 MEQ/L (136-145)
[2017-02-21] MEDS ORDERED: NITROFURANTOIN (MACROBID) 100 MG CAP PO ONE (15:00)
[2017-02-21 15:24] VITALS: BP 134/70
[2017-02-21] MEDS ORDERED: MACR100C43 PO (15:31)
--- NOTE | 2017-02-22 18:24 | ECGEPIP ---
Stationary ECG Study [facility] - ED Test Date: 2017-02-21 Pat Name: STEPHANIE BAIRES Department: Room: - Gender: F It Administrator: NATTY : [id number] Requested By: DEXTER Loyola Order Number: [id number] Reading MD: Pollo Storm Measurements Intervals [place] Rate: 69 P: 33 PA: 166 QRS: 1 QRSD: 94 T: 42 QT: 409 QTc: 441 Interpretive Statements SINUS RHYTHM NONSPECIFIC ST & T-WAVE ABNORMALITY Electronically Signed On 02-22-2017 18:24:25 EDT by Pollo Storm
== END 2017-02-21 15:40 | disposition home or self-care (01) ==
LOC: EDBD 12:17 → M ED 12:17
DX: N39.0 Urinary tract infection, site not specified (principal); R56.9 Unspecified convulsions; K21.9 Gastro-esophageal reflux disease without esophagitis; Z85.3 Personal history of malignant neoplasm of breast; J45.909 Unspecified asthma, uncomplicated

== ENCOUNTER 2017-06-28 12:46 | Inpatient (IN) | payer MEDICAID ==
[2017-06-28 13:24] LABS: BASO % 0.2 % (0.0-1.0); EOS % 0.5 % (0.0-3.0); HEMATOCRIT 39.9 % (36.0-47.0); HEMOGLOBIN 13.5 g/dl (12.0-16.0); IMMATURE GRANULOCYTE % 0.2 % (0-0); LYMPH # 3.5 10^3/uL (1.5-4.5); LYMPH % 59.6 % (24.0-44.0); MEAN CORPUSCULAR HEMOGLOBIN 30.1 pg (27.0-33.0); MEAN CORPUSCULAR HGB CONC 33.8 g/dl (32.0-36.5); MEAN CORPUSCULAR VOLUME 89.1 fl (80.0-96.0); MONO # 0.5 10^3/uL (0.0-0.8); MONO % 8.3 % (0.0-5.0); NEUTROPHILS # 1.8 10^3/uL (1.8-7.7); NEUTROPHILS % 31.2 % (36.0-66.0); PLATELET COUNT, AUTOMATED 249 10^3/uL (150-450); RED BLOOD COUNT 4.48 10^6/uL (4.00-5.40); WHITE BLOOD COUNT 5.8 10^3/uL (4.0-10.0)
[2017-06-28 13:25] LABS: VENOUS BASE EXCESS -4.8 (-2.0-2.0); VENOUS PARTIAL PRESSURE CO2 36.4 mmHg (38.0-50.0); VENOUS PARTIAL PRESSURE O2 75.3 mmHg (30.0-50.0); VENOUS PH 7.357 UNITS (7.330-7.430); VENOUS STANDARD HCO3 20.5 MEQ/L; VENOUS TOTAL CO2 21.1 MEQ/L (24.0-28.0)
[2017-06-28 13:44] LABS: CONTROL LINE HCG INT CTR LINE PRESENT; HCG, SERUM QUALITATIVE NEGATIVE (NEGATIVE)
[2017-06-28 13:52] LABS: LACTIC ACID SEPSIS PROTOCOL 1.9 MMOL/L (0.4-2.0)
[2017-06-28 13:54] LABS: ALBUMIN 3.4 GM/DL (3.2-5.2); ALBUMIN/GLOBULIN RATIO 0.81 (1.00-1.93); ALKALINE PHOSPHATASE 151 U/L (45-117); ALT/SGPT 23 U/L (12-78); ANION GAP 8 MEQ/L (8-16); AST/SGOT 15 U/L (7-37); BILIRUBIN,DIRECT < 0.1 MG/DL (0.0-0.2); BILIRUBIN,TOTAL 0.2 MG/DL (0.2-1.0); BLOOD UREA NITROGEN 10 MG/DL (7-18); CALCIUM LEVEL 8.8 MG/DL (8.5-10.1); CARBON DIOXIDE LEVEL 24 MEQ/L (21-32); CHLORIDE LEVEL 107 MEQ/L (98-107); CPK CREATINE PHOSPHOKINASE 47 U/L (26-192); CREATININE FOR GFR 0.48 MG/DL (0.55-1.02); GLOMERULAR FILTRATION RATE > 60.0 (>58); GLUCOSE, FASTING 79 MG/DL (70-105); SALICYLATE LEVEL 3.5 MG/DL (5.0-30.0); SODIUM LEVEL 139 MEQ/L (136-145); TOTAL PROTEIN 7.6 GM/DL (6.4-8.2); TROPONIN I < 0.02 NG/ML (< 0.10)
[2017-06-28 13:55] LABS: AMMONIA 155 uMOL/L (<32)
[2017-06-28 13:58] LABS: KETONE, URINE AUTO RFX NEGATIVE (NEGATIVE); LEUKOCYTE ESTERASE UR AUTO RFX NEGATIVE (NEGATIVE); NITRITE, URINE AUTO RFX NEGATIVE (NEGATIVE); RBC, URINE AUTO RFX 1 /HPF (0-3); SPECIFIC GRAVITY UR AUTO RFX 1.011 (1.002-1.035); SQUAM EPITHELIAL CELL UR AURFX 4 /HPF (0-6); WBC, URINE AUTO RFX 2 /HPF (0-3)
[2017-06-28 13:59] LABS: MB/CK RELATIVE INDEX 2.12 (< OR =4); VALPROIC ACID (DEPAKOTE) 92.4 UG/ML (50.0-100.0)
[2017-06-28 14:02] LABS: ACETAMINOPHEN LEVEL < 2.0 UG/ML (10.0-30.0); ETHYL ALCOHOL (ETHANOL) < 0.003 % (0.000-0.010)
[2017-06-28] MEDS: NS 1,000 ML IV (14:08)
[2017-06-28 14:34] LABS: AMPHETAMINES LEVEL URINE NEGATIVE (NEGATIVE); BARBITURATES URINE POSITIVE (NEGATIVE); BENZODIAZEPINES URINE NEGATIVE (NEGATIVE); CANNABINOIDS URINE NEGATIVE (NEGATIVE); COCAINE METABOLITE URINE NEGATIVE (NEGATIVE); METHADONE URINE NEGATIVE (NEGATIVE); OPIATES URINE NEGATIVE (NEGATIVE); PHENCYCLIDINE URINE NEGATIVE (NEGATIVE)
[2017-06-28 14:40] LABS: PHENOBARBITAL LEVEL 45.1 UG/ML (15.0-40.0)
[2017-06-28 15:03] LABS: INR 0.97
[2017-06-28] MEDS: LACTULOSE 20 GM/30 ML SYRUP UD PO ×2 (15:03→18:54)
[2017-06-28 15:04] LABS: PARTIAL THROMBOPLASTIN TIME 33.9 SECONDS (26.8-37.9)
[2017-06-28] MEDS ORDERED: ISOVUE-370 76% 100ML VIAL (Q9967) As Ordered (18:08)
[2017-06-28] MEDS ORDERED: ONDANSETRON 4MG/2ML VIAL (J2405) IV (18:15)
[2017-06-28] MEDS: ACETAMINOPHEN TAB 650MG DOSE (2X325MG) PO (21:30)
[2017-06-29] MEDS: LACTULOSE 20 GM/30 ML SYRUP UD PO ×2 (00:26→06:23)
[2017-06-29 06:08] LABS: HEMATOCRIT 38.1 % (36.0-47.0); HEMOGLOBIN 12.5 g/dl (12.0-16.0); MEAN CORPUSCULAR HEMOGLOBIN 29.5 pg (27.0-33.0); MEAN CORPUSCULAR HGB CONC 32.8 g/dl (32.0-36.5); MEAN CORPUSCULAR VOLUME 89.9 fl (80.0-96.0); PLATELET COUNT, AUTOMATED 212 10^3/uL (150-450); RED BLOOD COUNT 4.24 10^6/uL (4.00-5.40)
[2017-06-29 06:23] LABS: ANION GAP 7 MEQ/L (8-16); BLOOD UREA NITROGEN 10 MG/DL (7-18); CALCIUM LEVEL 8.2 MG/DL (8.5-10.1); CARBON DIOXIDE LEVEL 23 MEQ/L (21-32); CHLORIDE LEVEL 111 MEQ/L (98-107); CREATININE FOR GFR 0.43 MG/DL (0.55-1.02); GLOMERULAR FILTRATION RATE > 60.0 (>58); GLUCOSE, FASTING 81 MG/DL (70-105); MAGNESIUM LEVEL 2.2 MG/DL (1.8-2.4); POTASSIUM SERUM 4.1 MEQ/L (3.5-5.1); SODIUM LEVEL 141 MEQ/L (136-145)
[2017-06-29 06:23] LABS: AMMONIA 77 uMOL/L (<32)
[2017-06-29] MEDS: ENOXAPARIN 40 MG/0.4 ML SYRINGE (J1650) SC (08:55)
[2017-06-29] MEDS: MUPIROCIN 2% OINT 22 GM TUBE TOP (09:00)
[2017-06-30] MEDS ORDERED: INFLUENZA QUADRIVALENT PF VACCINE 0.5ML SYRINGE (90686) IM (09:00)
== END 2017-06-29 12:30 | disposition home or self-care (01) | DRG 52 ==
LOC: M ED 12:46 → M ED INP 18:01 → M MSPAV 22:02
DX: G93.41 Metabolic encephalopathy (principal); E72.20 Disorder of urea cycle metabolism, unspecified; Z99.81 Dependence on supplemental oxygen; F43.10 Post-traumatic stress disorder, unspecified; G47.33 Obstructive sleep apnea (adult) (pediatric); F17.210 Nicotine dependence, cigarettes, uncomplicated; M54.5 Low back pain; J44.9 Chronic obstructive pulmonary disease, unspecified; Z85.3 Personal history of malignant neoplasm of breast; Z90.12 Acquired absence of left breast and nipple; Z90.710 Acquired absence of both cervix and uterus; Z79.899 Other long term (current) drug therapy; Z88.0 Allergy status to penicillin; Z88.5 Allergy status to narcotic agent; Z91.018 Allergy to other foods; Z91.048 Other nonmedicinal substance allergy status; G40.909 Epilepsy, unspecified, not intractable, without status epilepticus

== ENCOUNTER → 2017-07-05 | Outpatient (REF) | payer MEDICAID ==
[2017-07-05 19:03] LABS: ALBUMIN 3.4 GM/DL (3.2-5.2); ALBUMIN/GLOBULIN RATIO 0.85 (1.00-1.93); ALKALINE PHOSPHATASE 150 U/L (45-117); ALT/SGPT 34 U/L (12-78); ANION GAP 6 MEQ/L (8-16); AST/SGOT 22 U/L (7-37); BILIRUBIN,TOTAL 0.2 MG/DL (0.2-1.0); BLOOD UREA NITROGEN 9 MG/DL (7-18); CALCIUM LEVEL 8.3 MG/DL (8.5-10.1); CARBON DIOXIDE LEVEL 22 MEQ/L (21-32); CHLORIDE LEVEL 111 MEQ/L (98-107); CREATININE FOR GFR 0.48 MG/DL (0.55-1.02); FREE T4 0.63 NG/DL (0.76-1.46); GLOMERULAR FILTRATION RATE > 60.0 (>58); GLUCOSE, FASTING 86 MG/DL (70-105); PHENOBARBITAL LEVEL 35.1 UG/ML (15.0-40.0); POTASSIUM SERUM 4.7 MEQ/L (3.5-5.1); SODIUM LEVEL 139 MEQ/L (136-145); TOTAL PROTEIN 7.4 GM/DL (6.4-8.2)
[2017-07-05 19:07] LABS: AMMONIA 147 uMOL/L (<32)
== END ==
LOC: M SFHCLERA 15:37
DX: G93.41 Metabolic encephalopathy (principal)

== ENCOUNTER → 2017-07-09 | Outpatient (REF) | payer MEDICAID ==
[2017-07-09 15:17] LABS: AMMONIA 76 uMOL/L (<32)
== END ==
LOC: M SFHCLERA 12:54
DX: E72.20 Disorder of urea cycle metabolism, unspecified (principal)
CPT/HCPCS: 82140

== ENCOUNTER → 2017-07-12 | Outpatient (REF) | payer MEDICAID ==
[2017-07-12 12:03] LABS: AMMONIA 70 uMOL/L (<32)
[2017-07-12 12:05] LABS: ALBUMIN 3.3 GM/DL (3.2-5.2); ALBUMIN/GLOBULIN RATIO 0.87 (1.00-1.93); ALKALINE PHOSPHATASE 133 U/L (45-117); ALT/SGPT 21 U/L (12-78); ANION GAP 10 MEQ/L (8-16); AST/SGOT 8 U/L (7-37); BILIRUBIN,TOTAL 0.3 MG/DL (0.2-1.0); BLOOD UREA NITROGEN 12 MG/DL (7-18); CALCIUM LEVEL 8.5 MG/DL (8.5-10.1); CARBON DIOXIDE LEVEL 25 MEQ/L (21-32); CHLORIDE LEVEL 108 MEQ/L (98-107); CREATININE FOR GFR 0.51 MG/DL (0.55-1.02); GLOMERULAR FILTRATION RATE > 60.0 (>58); GLUCOSE, FASTING 91 MG/DL (70-100); POTASSIUM SERUM 3.6 MEQ/L (3.5-5.1); SODIUM LEVEL 143 MEQ/L (136-145); TOTAL PROTEIN 7.1 GM/DL (6.4-8.2)
== END ==
LOC: M SFHCLERA 09:32
DX: E72.20 Disorder of urea cycle metabolism, unspecified (principal)
CPT/HCPCS: 82140

== ENCOUNTER → 2017-07-20 | Outpatient (CLI) | payer MEDICAID | LOC: M RAD 14:42 | DX: N63.10 Unspecified lump in the right breast, unspecified quadrant (principal) | CPT/HCPCS: 77065 ==

== ENCOUNTER → 2017-07-27 | Outpatient (REF) | payer MEDICAID ==
[2017-07-27 16:52] LABS: AMMONIA 39 uMOL/L (<32)
[2017-07-27 18:08] LABS: ALBUMIN 3.3 GM/DL (3.2-5.2); ALKALINE PHOSPHATASE 150 U/L (45-117); ALT/SGPT 16 U/L (12-78); ANION GAP 7 MEQ/L (8-16); AST/SGOT 9 U/L (7-37); BILIRUBIN,TOTAL 0.2 MG/DL (0.2-1.0); BLOOD UREA NITROGEN 6 MG/DL (7-18); CALCIUM LEVEL 8.3 MG/DL (8.5-10.1); CARBON DIOXIDE LEVEL 25 MEQ/L (21-32); CHLORIDE LEVEL 110 MEQ/L (98-107); CREATININE FOR GFR 0.52 MG/DL (0.55-1.30); GLOMERULAR FILTRATION RATE > 60.0 (>58); GLUCOSE, FASTING 94 MG/DL (70-100); MAGNESIUM LEVEL 2.1 MG/DL (1.8-2.4); POTASSIUM SERUM 3.9 MEQ/L (3.5-5.1); SODIUM LEVEL 142 MEQ/L (136-145); TOTAL PROTEIN 6.6 GM/DL (6.4-8.2)
[2017-07-27 18:15] LABS: TOTAL 25(OH) VITAMIN D 6.1 NG/ML (30.0-100.0)
== END ==
LOC: M SFHCLERA 14:59
DX: E72.20 Disorder of urea cycle metabolism, unspecified (principal)

== ENCOUNTER → 2017-09-17 | Outpatient (REF) | payer MEDICAID ==
[2017-09-17 18:47] LABS: BASO % 0.2 % (0.0-1.0); EOS # 0.2 10^3/uL (0.0-0.50); EOS % 3.4 % (0.0-3.0); HEMATOCRIT 38.9 % (36.0-47.0); HEMOGLOBIN 12.8 g/dl (12.0-15.5); IMMATURE GRANULOCYTE % 0.2 % (0-3.0); LYMPH # 2.8 10^3/uL (1.5-4.5); LYMPH % 48.6 % (24.0-44.0); MEAN CORPUSCULAR HEMOGLOBIN 29.4 pg (27.0-33.0); MEAN CORPUSCULAR HGB CONC 32.9 g/dl (32.0-36.5); MEAN CORPUSCULAR VOLUME 89.4 fl (80.0-96.0); MONO # 0.4 10^3/uL (0.0-0.8); MONO % 7.6 % (0.0-5.0); NEUTROPHILS # 2.3 10^3/uL (1.8-7.7); PLATELET COUNT, AUTOMATED 325 10^3/uL (150-450); RED BLOOD COUNT 4.35 10^6/uL (4.00-5.40); RED CELL DISTRIBUTION WIDTH 13.2 % (11.5-14.5); WHITE BLOOD COUNT 5.8 10^3/uL (4.0-10.0)
[2017-09-17 18:50] LABS: ESTIMATED AVERAGE GLUCOSE 91 MG/DL (60-110); HEMOGLOBIN A1c 4.8 %
[2017-09-17 18:53] LABS: AMMONIA 56 uMOL/L (<32)
[2017-09-17 19:00] LABS: ALBUMIN 3.4 GM/DL (3.2-5.2); ALBUMIN/GLOBULIN RATIO 0.92 (1.00-1.93); ALKALINE PHOSPHATASE 172 U/L (45-117); ALT/SGPT 20 U/L (12-78); ANION GAP 7 MEQ/L (8-16); AST/SGOT 13 U/L (7-37); BILIRUBIN,TOTAL 0.2 MG/DL (0.2-1.0); BLOOD UREA NITROGEN 6 MG/DL (7-18); CALCIUM LEVEL 8.7 MG/DL (8.5-10.1); CARBON DIOXIDE LEVEL 22 MEQ/L (21-32); CHLORIDE LEVEL 114 MEQ/L (98-107); CREATININE FOR GFR 0.55 MG/DL (0.55-1.30); FREE T4 0.82 NG/DL (0.76-1.46); GLOMERULAR FILTRATION RATE > 60.0 (>58); GLUCOSE, FASTING 81 MG/DL (70-100); POTASSIUM SERUM 3.9 MEQ/L (3.5-5.1); SODIUM LEVEL 143 MEQ/L (136-145); TOTAL PROTEIN 7.1 GM/DL (6.4-8.2)
[2017-09-17 20:37] LABS: ERYTHROCYTE SEDIMENTATION RATE 27 mm/hr (0-20)
[2017-09-19 10:57] LABS: HIV 1&2 SCREEN CENTAUR NEGATIVE (NEGATIVE)
== END ==
LOC: M SFHCLERA 15:42
DX: E72.20 Disorder of urea cycle metabolism, unspecified (principal); R63.4 Abnormal weight loss

== ENCOUNTER → 2017-09-17 | Outpatient (CLI) | payer MEDICAID | LOC: M LRY 16:15 | DX: R63.4 Abnormal weight loss (principal); R91.8 Other nonspecific abnormal finding of lung field ==

== ENCOUNTER → 2017-10-29 | Outpatient (REF) | payer MEDICAID ==
[2017-10-29 17:19] LABS: AMMONIA 42 uMOL/L (<32)
[2017-10-29 17:21] LABS: ALBUMIN 3.5 GM/DL (3.2-5.2); ALBUMIN/GLOBULIN RATIO 0.92 (1.00-1.93); ALKALINE PHOSPHATASE 174 U/L (45-117); ALT/SGPT 45 U/L (12-78); ANION GAP 5 MEQ/L (8-16); AST/SGOT 34 U/L (7-37); BILIRUBIN,TOTAL 0.1 MG/DL (0.2-1.0); BLOOD UREA NITROGEN 9 MG/DL (7-18); CALCIUM LEVEL 8.7 MG/DL (8.5-10.1); CARBON DIOXIDE LEVEL 25 MEQ/L (21-32); CHLORIDE LEVEL 109 MEQ/L (98-107); CREATININE FOR GFR 0.59 MG/DL (0.55-1.30); GLOMERULAR FILTRATION RATE > 60.0 (>58); GLUCOSE, FASTING 77 MG/DL (70-100); POTASSIUM SERUM 4.7 MEQ/L (3.5-5.1); SODIUM LEVEL 139 MEQ/L (136-145); TOTAL PROTEIN 7.3 GM/DL (6.4-8.2)
[2017-10-29 17:56] LABS: BASO % 0.1 % (0.0-1.0); HEMATOCRIT 40.2 % (36.0-47.0); HEMOGLOBIN 13.3 g/dl (12.0-15.5); IMMATURE GRANULOCYTE % 0.1 % (0-3.0); LYMPH # 2.8 10^3/uL (1.5-4.5); LYMPH % 38.6 % (24.0-44.0); MEAN CORPUSCULAR HEMOGLOBIN 29.2 pg (27.0-33.0); MEAN CORPUSCULAR HGB CONC 33.1 g/dl (32.0-36.5); MEAN CORPUSCULAR VOLUME 88.2 fl (80.0-96.0); MONO # 0.5 10^3/uL (0.0-0.8); MONO % 7.1 % (0.0-5.0); NEUTROPHILS # 3.9 10^3/uL (1.8-7.7); NEUTROPHILS % 54.1 % (36.0-66.0); PLATELET COUNT, AUTOMATED 329 10^3/uL (150-450); RED BLOOD COUNT 4.56 10^6/uL (4.00-5.40); RED CELL DISTRIBUTION WIDTH 12.9 % (11.5-14.5); WHITE BLOOD COUNT 7.2 10^3/uL (4.0-10.0)
== END ==
LOC: M SFHCLERA 14:58
DX: R63.4 Abnormal weight loss (principal)

== ENCOUNTER → 2017-10-29 | Outpatient (CLI) | payer MEDICAID | LOC: M LRY 15:23 | DX: R22.43 Localized swelling, mass and lump, lower limb, bilateral (principal) ==

== ENCOUNTER 2017-11-05 17:24 | Emergency (ER) | payer MEDICAID ==
[2017-11-05] MEDS ORDERED: ACETAMINOPHEN 325 MG TAB PO (18:45)
[2017-11-05] MEDS ORDERED: KETOROLAC 60 MG/2 ML VIAL (J1885) IM (18:45)
[2017-11-05] MEDS: KETOROLAC 60 MG/2 ML VIAL (J1885) IM (18:57)
== END 2017-11-05 21:28 | disposition home or self-care (01) ==
LOC: M ED 17:24
DX: R56.9 Unspecified convulsions (principal); M54.5 Low back pain; M54.2 Cervicalgia; J45.909 Unspecified asthma, uncomplicated; F43.10 Post-traumatic stress disorder, unspecified; F31.9 Bipolar disorder, unspecified; F90.9 Attention-deficit hyperactivity disorder, unspecified type; F41.9 Anxiety disorder, unspecified; Z85.3 Personal history of malignant neoplasm of breast; Z87.442 Personal history of urinary calculi; F17.200 Nicotine dependence, unspecified, uncomplicated; Z88.5 Allergy status to narcotic agent; Z91.018 Allergy to other foods; Z88.0 Allergy status to penicillin; Z91.048 Other nonmedicinal substance allergy status; Z79.899 Other long term (current) drug therapy
CPT/HCPCS: J1885

== ENCOUNTER → 2017-11-08 | Outpatient (REF) | payer MEDICAID ==
[2017-11-08 13:24] LABS: COMPLEMENT C3 111 MG/DL (90-180)
[2017-11-08 13:24] LABS: COMPLEMENT C4 21.4 MG/DL (10-40); RHEUMATOID FACTOR QUANT < 10.0 IU/ML (<15.0)
[2017-11-08 13:39] LABS: TOTAL 25(OH) VITAMIN D 31.1 NG/ML (30.0-100.0)
[2017-11-16 03:02] LABS: CYCLIC CITRULLINATED PEPTIDE 7 units (0-19)
[2017-11-16 03:02] LABS: ANA (HEP2) Negative (.); APTT 27.7 sec (.); Anticardiolipin Ab, IgA <10 APL (.)
== END ==
LOC: M SFHCLERA 11:02
DX: M25.50 Pain in unspecified joint (principal)

== ENCOUNTER 2017-11-11 22:34 | Emergency (ER) | payer MEDICAID ==
[2017-11-11 23:31] LABS: KETONE, URINE AUTO RFX NEGATIVE (NEGATIVE); LEUKOCYTE ESTERASE UR AUTO RFX TRACE (NEGATIVE); NITRITE, URINE AUTO RFX NEGATIVE (NEGATIVE); RBC, URINE AUTO RFX 0 /HPF (0-3); SPECIFIC GRAVITY UR AUTO RFX 1.016 (1.002-1.035); SQUAM EPITHELIAL CELL UR AURFX 1 /HPF (0-6); WBC, URINE AUTO RFX 12 /HPF (0-3)
[2017-11-12] MEDS: ONDANSETRON 4MG/2ML VIAL (J2405) IV (02:00)
[2017-11-12] MEDS: NS 1,000 ML IV (02:00)
[2017-11-12 02:26] LABS: BASO % 0.1 % (0.0-1.0); HEMATOCRIT 36.6 % (36.0-47.0); HEMOGLOBIN 12.1 g/dl (12.0-15.5); IMMATURE GRANULOCYTE % 0.2 % (0-3.0); LYMPH # 3.1 10^3/uL (1.5-4.5); LYMPH % 30.7 % (24.0-44.0); MEAN CORPUSCULAR HEMOGLOBIN 28.9 pg (27.0-33.0); MEAN CORPUSCULAR HGB CONC 33.1 g/dl (32.0-36.5); MEAN CORPUSCULAR VOLUME 87.4 fl (80.0-96.0); MONO # 0.7 10^3/uL (0.0-0.8); MONO % 6.8 % (0.0-5.0); NEUTROPHILS # 6.3 10^3/uL (1.8-7.7); NEUTROPHILS % 62.2 % (36.0-66.0); PLATELET COUNT, AUTOMATED 269 10^3/uL (150-450); RED BLOOD COUNT 4.19 10^6/uL (4.00-5.40); RED CELL DISTRIBUTION WIDTH 13.2 % (11.5-14.5); WHITE BLOOD COUNT 10.2 10^3/uL (4.0-10.0)
[2017-11-12] MEDS: MORPHINE 2 MG/ML 1ML SYRINGE (J2270) IV ×3 (02:36→04:28)
[2017-11-12 02:51] LABS: ALBUMIN 3.3 GM/DL (3.2-5.2); ALBUMIN/GLOBULIN RATIO 0.92 (1.00-1.93); ALKALINE PHOSPHATASE 136 U/L (45-117); ALT/SGPT 27 U/L (12-78); ANION GAP 7 MEQ/L (8-16); AST/SGOT 21 U/L (7-37); BILIRUBIN,DIRECT < 0.1 MG/DL (0.0-0.2); BILIRUBIN,TOTAL 0.3 MG/DL (0.2-1.0); BLOOD UREA NITROGEN 9 MG/DL (7-18); CALCIUM LEVEL 8.4 MG/DL (8.5-10.1); CARBON DIOXIDE LEVEL 24 MEQ/L (21-32); CHLORIDE LEVEL 108 MEQ/L (98-107); CREATININE FOR GFR 0.51 MG/DL (0.55-1.30); GLOMERULAR FILTRATION RATE > 60.0 (>58); GLUCOSE, FASTING 107 MG/DL (70-100); LIPASE 130 U/L (73-393); POTASSIUM SERUM 3.6 MEQ/L (3.5-5.1); SODIUM LEVEL 139 MEQ/L (136-145); TOTAL PROTEIN 6.9 GM/DL (6.4-8.2)
[2017-11-12] MEDS ORDERED: ISOVUE-370 76% 100ML VIAL (Q9967) As Ordered (04:22)
== END 2017-11-12 06:31 | disposition home or self-care (01) ==
LOC: M ED 22:34
DX: R10.9 Unspecified abdominal pain (principal); R11.0 Nausea; Z87.442 Personal history of urinary calculi; Z79.899 Other long term (current) drug therapy
CPT/HCPCS: J2405

== ENCOUNTER 2017-11-26 08:25 | Day surgery (SDC) | payer MEDICAID ==
[2017-11-26] MEDS ORDERED: PROPOFOL 200 MG/20 ML VIAL As Ordered (09:11)
[2017-11-26] MEDS ORDERED: LIDOCAINE 2% INJ 100 MG/5 ML SDV (FOR ANES.) As Ordered (09:11)
[2017-11-26] MEDS ORDERED: fentaNYL 100 MCG/2 ML INJECTION (J3010) As Ordered (09:12)
[2017-11-26] MEDS: NS 1,000 ML IV (09:15)
[2017-11-26] MEDS ORDERED: MIDAZOLAM INJ 2 MG/2 ML VIAL (J2250) As Ordered (09:25)
== END 2017-11-26 11:28 | disposition home or self-care (01) ==
LOC: M OPP 08:25
DX: R63.4 Abnormal weight loss (principal); R19.7 Diarrhea, unspecified; K64.8 Other hemorrhoids; R11.2 Nausea with vomiting, unspecified; K29.70 Gastritis, unspecified, without bleeding; K21.9 Gastro-esophageal reflux disease without esophagitis; R06.02 Shortness of breath; M19.90 Unspecified osteoarthritis, unspecified site; M54.89 Other dorsalgia; M54.2 Cervicalgia; F41.9 Anxiety disorder, unspecified; F31.9 Bipolar disorder, unspecified; G43.909 Migraine, unspecified, not intractable, without status migrainosus; F90.9 Attention-deficit hyperactivity disorder, unspecified type; F43.10 Post-traumatic stress disorder, unspecified; G40.909 Epilepsy, unspecified, not intractable, without status epilepticus; J45.909 Unspecified asthma, uncomplicated; J44.9 Chronic obstructive pulmonary disease, unspecified; G47.30 Sleep apnea, unspecified; R06.83 Snoring; Z85.3 Personal history of malignant neoplasm of breast; Z92.21 Personal history of antineoplastic chemotherapy; Z90.12 Acquired absence of left breast and nipple; N39.3 Stress incontinence (female) (male); F17.210 Nicotine dependence, cigarettes, uncomplicated; F12.10 Cannabis abuse, uncomplicated; Z88.5 Allergy status to narcotic agent; Z88.0 Allergy status to penicillin; Z88.8 Allergy status to other drugs, medicaments and biological substances; Z91.048 Other nonmedicinal substance allergy status; Z91.030 Bee allergy status; Z79.899 Other long term (current) drug therapy
CPT/HCPCS: 45378

== ENCOUNTER 2017-12-12 15:23 | Emergency (ER) | payer MEDICAID ==
[2017-12-12] MEDS: METOCLOPRAMIDE INJ 10MG/2ML VIAL (J2765) IV (16:33)
[2017-12-12] MEDS: NS 1,000 ML IV (16:33)
[2017-12-12 16:38] LABS: BASO % 0.1 % (0.0-1.0); HEMATOCRIT 37.2 % (36.0-47.0); HEMOGLOBIN 12.4 g/dl (12.0-15.5); IMMATURE GRANULOCYTE % 0.5 % (0-3.0); LYMPH # 2.4 10^3/uL (1.5-4.5); LYMPH % 22.9 % (24.0-44.0); MEAN CORPUSCULAR HEMOGLOBIN 28.8 pg (27.0-33.0); MEAN CORPUSCULAR HGB CONC 33.3 g/dl (32.0-36.5); MEAN CORPUSCULAR VOLUME 86.5 fl (80.0-96.0); MONO # 0.7 10^3/uL (0.0-0.8); MONO % 6.4 % (0.0-5.0); NEUTROPHILS # 7.4 10^3/uL (1.8-7.7); NEUTROPHILS % 70.1 % (36.0-66.0); PLATELET COUNT, AUTOMATED 262 10^3/uL (150-450); RED CELL DISTRIBUTION WIDTH 13.6 % (11.5-14.5); WHITE BLOOD COUNT 10.6 10^3/uL (4.0-10.0)
[2017-12-12 16:57] LABS: ALBUMIN 3.2 GM/DL (3.2-5.2); ALBUMIN/GLOBULIN RATIO 0.89 (1.00-1.93); ALKALINE PHOSPHATASE 147 U/L (45-117); ALT/SGPT 21 U/L (12-78); ANION GAP 8 MEQ/L (8-16); AST/SGOT 14 U/L (7-37); BILIRUBIN,DIRECT < 0.1 MG/DL (0.0-0.2); BILIRUBIN,TOTAL 0.2 MG/DL (0.2-1.0); BLOOD UREA NITROGEN 7 MG/DL (7-18); CALCIUM LEVEL 8.3 MG/DL (8.5-10.1); CARBON DIOXIDE LEVEL 24 MEQ/L (21-32); CHLORIDE LEVEL 112 MEQ/L (98-107); CPK CREATINE PHOSPHOKINASE 52 U/L (26-192); CREATININE FOR GFR 0.47 MG/DL (0.55-1.30); ETHYL ALCOHOL (ETHANOL) 0.004 % (0.000-0.010); GLOMERULAR FILTRATION RATE > 60.0 (>58); GLUCOSE, FASTING 96 MG/DL (70-100); POTASSIUM SERUM 3.8 MEQ/L (3.5-5.1); SODIUM LEVEL 144 MEQ/L (136-145); TOTAL PROTEIN 6.8 GM/DL (6.4-8.2); TROPONIN I 0.02 NG/ML (< 0.10)
[2017-12-12 17:00] LABS: KETONE, URINE AUTO RFX NEGATIVE (NEGATIVE); LEUKOCYTE ESTERASE UR AUTO RFX NEGATIVE (NEGATIVE); NITRITE, URINE AUTO RFX NEGATIVE (NEGATIVE); RBC, URINE AUTO RFX 0 /HPF (0-3); SPECIFIC GRAVITY UR AUTO RFX 1.002 (1.002-1.035); SQUAM EPITHELIAL CELL UR AURFX 1 /HPF (0-6); WBC, URINE AUTO RFX 0 /HPF (0-3)
[2017-12-12 17:02] LABS: ACETAMINOPHEN LEVEL < 2.0 UG/ML (10.0-30.0); CK-MB VALUE MASS < 1.0 NG/ML (<3.6); MB/CK RELATIVE INDEX 1.92 (< OR =4); PHENOBARBITAL LEVEL 19.8 UG/ML (15.0-40.0)
[2017-12-12 17:03] LABS: THYROID STIMULATING HORMONE 0.816 uIU/ML (0.358-3.740)
[2017-12-12 17:07] LABS: AMPHETAMINES LEVEL URINE NEGATIVE (NEGATIVE); BARBITURATES URINE POSITIVE (NEGATIVE); BENZODIAZEPINES URINE NEGATIVE (NEGATIVE); CANNABINOIDS URINE NEGATIVE (NEGATIVE); COCAINE METABOLITE URINE NEGATIVE (NEGATIVE); METHADONE URINE NEGATIVE (NEGATIVE); OPIATES URINE NEGATIVE (NEGATIVE); PHENCYCLIDINE URINE NEGATIVE (NEGATIVE)
== END 2017-12-12 18:08 | disposition home or self-care (01) ==
LOC: M ED 15:23
DX: G40.909 Epilepsy, unspecified, not intractable, without status epilepticus (principal); J45.909 Unspecified asthma, uncomplicated; G89.29 Other chronic pain; F17.200 Nicotine dependence, unspecified, uncomplicated
CPT/HCPCS: J2765

== ENCOUNTER 2017-12-16 16:59 | Emergency (ER) | payer MEDICAID ==
[2017-12-16] MEDS ORDERED: BACITRACIN OINT 30GM TOP (18:15)
[2017-12-16] MEDS ORDERED: POLYSPORIN TOPICAL OINTMENT 15GM As Ordered (18:19)
[2017-12-16] MEDS: POLYSPORIN TOPICAL OINTMENT 15GM TOP (18:30)
== END 2017-12-16 18:42 | disposition home or self-care (01) ==
LOC: M ED 16:59
DX: S80.211A Abrasion, right knee, initial encounter (principal); X58.XXXA Exposure to other specified factors, initial encounter; Y92.89 Other specified places as the place of occurrence of the external cause; Y93.89 Activity, other specified; L02.415 Cutaneous abscess of right lower limb; E66.9 Obesity, unspecified; J44.9 Chronic obstructive pulmonary disease, unspecified; J45.909 Unspecified asthma, uncomplicated; K21.9 Gastro-esophageal reflux disease without esophagitis; G47.33 Obstructive sleep apnea (adult) (pediatric); F90.9 Attention-deficit hyperactivity disorder, unspecified type; F31.9 Bipolar disorder, unspecified; F41.9 Anxiety disorder, unspecified; F43.10 Post-traumatic stress disorder, unspecified; Z88.5 Allergy status to narcotic agent; Z88.0 Allergy status to penicillin; Z91.030 Bee allergy status; Z91.048 Other nonmedicinal substance allergy status; Z91.018 Allergy to other foods; Z79.899 Other long term (current) drug therapy
CPT/HCPCS: 99282

== ENCOUNTER 2017-12-26 15:07 | Emergency (ER) | payer MEDICAID ==
[2017-12-26] MEDS: diphenhydrAMINE INJ 50MG/ML VIAL (J1200) IV ×2 (17:49→20:05)
[2017-12-26] MEDS: NS 1,000 ML IV (17:50)
[2017-12-26] MEDS: MORPHINE 2 MG/ML 1ML SYRINGE (J2270) IV ×2 (18:34→20:05)
[2017-12-26 20:06] LABS: HEMATOCRIT 43.7 % (36.0-47.0); HEMOGLOBIN 14.5 g/dl (12.0-15.5); MEAN CORPUSCULAR HEMOGLOBIN 29.1 pg (27.0-33.0); MEAN CORPUSCULAR HGB CONC 33.2 g/dl (32.0-36.5); MEAN CORPUSCULAR VOLUME 87.6 fl (80.0-96.0); PLATELET COUNT, AUTOMATED 303 10^3/uL (150-450); RED BLOOD COUNT 4.99 10^6/uL (4.00-5.40); RED CELL DISTRIBUTION WIDTH 13.6 % (11.5-14.5); WHITE BLOOD COUNT 8.8 10^3/uL (4.0-10.0)
[2017-12-26 20:20] LABS: INR 1.07
[2017-12-26 20:21] LABS: PARTIAL THROMBOPLASTIN TIME 38.9 SECONDS (25.4-37.6)
[2017-12-26 20:29] LABS: ANION GAP 8 MEQ/L (8-16); BLOOD UREA NITROGEN 10 MG/DL (7-18); C REACTIVE PROTEIN QUANTITATIV 3.02 MG/DL (0.00-0.30); CALCIUM LEVEL 8.6 MG/DL (8.5-10.1); CARBON DIOXIDE LEVEL 22 MEQ/L (21-32); CHLORIDE LEVEL 111 MEQ/L (98-107); CREATININE FOR GFR 0.51 MG/DL (0.55-1.30); ERYTHROCYTE SEDIMENTATION RATE 14 mm/hr (0-20); GLOMERULAR FILTRATION RATE > 60.0 (>58); GLUCOSE, FASTING 85 MG/DL (70-100); POTASSIUM SERUM 3.9 MEQ/L (3.5-5.1); SODIUM LEVEL 141 MEQ/L (136-145)
[2017-12-26 20:32] LABS: LACTIC ACID SEPSIS PROTOCOL 1.1 MMOL/L (0.4-2.0)
== END 2017-12-26 21:31 | disposition home or self-care (01) ==
LOC: M ED 15:07
DX: S81.801A Unspecified open wound, right lower leg, initial encounter (principal); X58.XXXA Exposure to other specified factors, initial encounter; Y92.9 Unspecified place or not applicable; Y93.9 Activity, unspecified; Y99.9 Unspecified external cause status; G43.909 Migraine, unspecified, not intractable, without status migrainosus; R56.9 Unspecified convulsions; J45.909 Unspecified asthma, uncomplicated; J44.9 Chronic obstructive pulmonary disease, unspecified; K21.9 Gastro-esophageal reflux disease without esophagitis; N39.0 Urinary tract infection, site not specified; M54.9 Dorsalgia, unspecified; F41.9 Anxiety disorder, unspecified; F32.9 Major depressive disorder, single episode, unspecified; F43.10 Post-traumatic stress disorder, unspecified; F31.9 Bipolar disorder, unspecified; F90.9 Attention-deficit hyperactivity disorder, unspecified type; Z85.3 Personal history of malignant neoplasm of breast; Z72.0 Tobacco use; Z79.899 Other long term (current) drug therapy; Z88.5 Allergy status to narcotic agent; Z88.8 Allergy status to other drugs, medicaments and biological substances; Z88.0 Allergy status to penicillin; Z91.89 Other specified personal risk factors, not elsewhere classified; Z91.018 Allergy to other foods; Z91.030 Bee allergy status
CPT/HCPCS: J1200

== ENCOUNTER → 2018-01-24 | Outpatient (REF) | payer MEDICAID | LOC: M SFHCLERA 13:59 | DX: F31.9 Bipolar disorder, unspecified (principal); Z53.9 Procedure and treatment not carried out, unspecified reason ==

== ENCOUNTER 2018-03-05 15:26 | Emergency (ER) | payer MEDICAID, OTHER ==
[2018-03-05] MEDS: NS 500 ML IV (17:45)
[2018-03-05] MEDS: HYDROMORPHONE HCL 0.5 MG/ 0.5 ML SYRINGE (J1170 PER 1) IV ×2 (17:47→20:48)
[2018-03-05 17:53] LABS: ANION GAP 10 MEQ/L (8-16); BLOOD UREA NITROGEN 7 MG/DL (7-18); CALCIUM LEVEL 9.1 MG/DL (8.5-10.1); CARBON DIOXIDE LEVEL 23 MEQ/L (21-32); CHLORIDE LEVEL 106 MEQ/L (98-107); CREATININE FOR GFR 0.49 MG/DL (0.55-1.30); GLOMERULAR FILTRATION RATE > 60.0 (>58); GLUCOSE, FASTING 76 MG/DL (70-100); PHENOBARBITAL LEVEL 21.7 UG/ML (15.0-40.0); POTASSIUM SERUM 4.7 MEQ/L (3.5-5.1); SODIUM LEVEL 139 MEQ/L (136-145)
[2018-03-05 18:02] LABS: HEMATOCRIT 42.5 % (36.0-47.0); HEMOGLOBIN 13.8 g/dl (12.0-15.5); MEAN CORPUSCULAR HEMOGLOBIN 28.9 pg (27.0-33.0); MEAN CORPUSCULAR HGB CONC 32.5 g/dl (32.0-36.5); MEAN CORPUSCULAR VOLUME 88.9 fl (80.0-96.0); PLATELET COUNT, AUTOMATED 273 10^3/uL (150-450); RED BLOOD COUNT 4.78 10^6/uL (4.00-5.40); RED CELL DISTRIBUTION WIDTH 13.8 % (11.5-14.5); WHITE BLOOD COUNT 5.3 10^3/uL (4.0-10.0)
[2018-03-05 18:20] LABS: ADD MANUAL DIFFER YES; DIFF SLIDE NUMBER 372; POS COUNT POS FLAG; POSITIVE MORPH POS FLAG
[2018-03-05 18:33] LABS: ATYPICAL LYMPH 22 % (0-5); LYMPHOCYTES 36 % (16-52); MONOCYTES 11 % (0-8); NEUTROPHILS 31 % (35-75); PLATELET ESTIMATE NORMAL (NORMAL)
[2018-03-05] MEDS: oxyCODONE 5MG TAB PO (18:51)
[2018-03-05] MEDS: diphenhydrAMINE INJ 50MG/ML VIAL (J1200) IV (18:51)
[2018-03-05] MEDS: ONDANSETRON 4MG/2ML VIAL (J2405) IV (20:41)
[2018-03-05] MEDS: OXYCODONE/APAP 5MG/325MG(BULK FOR ED) 1 TABLET PO (22:00)
[2018-03-08 10:23] LABS: ZONISAMIDE LEVEL 2.3 ug/mL (10.0-40.0)
== END 2018-03-05 22:27 | disposition home or self-care (01) ==
LOC: M ED 15:26
DX: R56.9 Unspecified convulsions (principal); J44.9 Chronic obstructive pulmonary disease, unspecified; G47.33 Obstructive sleep apnea (adult) (pediatric); F31.9 Bipolar disorder, unspecified; K21.9 Gastro-esophageal reflux disease without esophagitis; F17.200 Nicotine dependence, unspecified, uncomplicated
CPT/HCPCS: J1200

== ENCOUNTER 2018-05-01 14:43 | Emergency (ER) | payer MEDICAID ==
[2018-05-01 15:42] LABS: HEMATOCRIT 43.5 % (36.0-47.0); HEMOGLOBIN 14.1 g/dl (12.0-15.5); MEAN CORPUSCULAR HEMOGLOBIN 29.4 pg (27.0-33.0); MEAN CORPUSCULAR HGB CONC 32.4 g/dl (32.0-36.5); MEAN CORPUSCULAR VOLUME 90.8 fl (80.0-96.0); PLATELET COUNT, AUTOMATED 323 10^3/uL (150-450); RED BLOOD COUNT 4.79 10^6/uL (4.00-5.40); RED CELL DISTRIBUTION WIDTH 13.5 % (11.5-14.5); WHITE BLOOD COUNT 7.7 10^3/uL (4.0-10.0)
[2018-05-01] MEDS: HYDROMORPHONE HCL 0.5 MG/ 0.5 ML SYRINGE (J1170 PER 1) IV (16:35)
[2018-05-01 17:13] LABS: AMPHETAMINES LEVEL URINE NEGATIVE (NEGATIVE); BARBITURATES URINE POSITIVE (NEGATIVE); BENZODIAZEPINES URINE NEGATIVE (NEGATIVE); CANNABINOIDS URINE NEGATIVE (NEGATIVE); COCAINE METABOLITE URINE NEGATIVE (NEGATIVE); METHADONE URINE NEGATIVE (NEGATIVE); OPIATES URINE NEGATIVE (NEGATIVE); PHENCYCLIDINE URINE NEGATIVE (NEGATIVE)
[2018-05-01] MEDS: oxyCODONE 5MG TAB PO (17:45)
[2018-05-01 18:26] LABS: ANION GAP 6 MEQ/L (8-16); BLOOD UREA NITROGEN 4 MG/DL (7-18); CALCIUM LEVEL 9.1 MG/DL (8.5-10.1); CARBON DIOXIDE LEVEL 26 MEQ/L (21-32); CHLORIDE LEVEL 110 MEQ/L (98-107); CREATININE FOR GFR 0.47 MG/DL (0.55-1.30); ETHYL ALCOHOL (ETHANOL) < 0.003 % (0.000-0.010); GLOMERULAR FILTRATION RATE > 60.0 (>58); GLUCOSE, FASTING 97 MG/DL (70-100); POTASSIUM SERUM 4.5 MEQ/L (3.5-5.1); SODIUM LEVEL 142 MEQ/L (136-145)
[2018-05-06 14:16] LABS: ZONISAMIDE LEVEL 4.4 ug/mL (10.0-40.0)
== END 2018-05-01 18:58 | disposition home or self-care (01) ==
LOC: M ED 14:43
DX: S93.401A Sprain of unspecified ligament of right ankle, initial encounter (principal); S89.91XA Unspecified injury of right lower leg, initial encounter; W01.198A Fall on same level from slipping, tripping and stumbling with subsequent striking against other object, initial encounter; Y92.009 Unspecified place in unspecified non-institutional (private) residence as the place of occurrence of the external cause; G40.909 Epilepsy, unspecified, not intractable, without status epilepticus; J45.909 Unspecified asthma, uncomplicated; G47.33 Obstructive sleep apnea (adult) (pediatric); K21.9 Gastro-esophageal reflux disease without esophagitis; F17.200 Nicotine dependence, unspecified, uncomplicated; Z88.5 Allergy status to narcotic agent; Z91.018 Allergy to other foods; Z91.030 Bee allergy status; Z88.0 Allergy status to penicillin; Z91.048 Other nonmedicinal substance allergy status; Z79.899 Other long term (current) drug therapy
CPT/HCPCS: J1170

== ENCOUNTER 2018-05-13 00:25 | Emergency (ER) | payer MEDICAID ==
[2018-05-13] MEDS: PERCOCET 5MG/325MG TAB PO (00:59)
[2018-05-13] MEDS: OXYCODONE/APAP 5MG/325MG(BULK FOR ED) 1 TABLET PO (02:15)
== END 2018-05-13 02:29 | disposition home or self-care (01) ==
LOC: M ED 00:25
DX: S93.401A Sprain of unspecified ligament of right ankle, initial encounter (principal); X50.9XXA Other and unspecified overexertion or strenuous movements or postures, initial encounter; Y92.018 Other place in single-family (private) house as the place of occurrence of the external cause; J44.9 Chronic obstructive pulmonary disease, unspecified; Z79.899 Other long term (current) drug therapy; Z88.0 Allergy status to penicillin; Z88.5 Allergy status to narcotic agent; Z88.8 Allergy status to other drugs, medicaments and biological substances; Z91.018 Allergy to other foods; Z91.030 Bee allergy status; Z91.048 Other nonmedicinal substance allergy status; F17.210 Nicotine dependence, cigarettes, uncomplicated
CPT/HCPCS: 73610

== ENCOUNTER 2018-05-15 17:37 | Emergency (ER) | payer MEDICAID ==
[2018-05-15 18:17] LABS: BASO % 0.2 % (0.0-1.0); HEMATOCRIT 44.7 % (36.0-47.0); HEMOGLOBIN 14.5 g/dl (12.0-15.5); IMMATURE GRANULOCYTE % 0.3 % (0-3.0); LYMPH # 2.5 10^3/uL (1.5-4.5); LYMPH % 39.4 % (24.0-44.0); MEAN CORPUSCULAR HEMOGLOBIN 28.4 pg (27.0-33.0); MEAN CORPUSCULAR HGB CONC 32.4 g/dl (32.0-36.5); MEAN CORPUSCULAR VOLUME 87.6 fl (80.0-96.0); MONO # 0.6 10^3/uL (0.0-0.8); MONO % 9.4 % (0.0-5.0); NEUTROPHILS # 3.2 10^3/uL (1.8-7.7); NEUTROPHILS % 50.7 % (36.0-66.0); PLATELET COUNT, AUTOMATED 348 10^3/uL (150-450); RED CELL DISTRIBUTION WIDTH 13.2 % (11.5-14.5); WHITE BLOOD COUNT 6.3 10^3/uL (4.0-10.0)
[2018-05-15 18:35] LABS: ANION GAP 6 MEQ/L (8-16); BLOOD UREA NITROGEN 5 MG/DL (7-18); CALCIUM LEVEL 9.3 MG/DL (8.5-10.1); CARBON DIOXIDE LEVEL 27 MEQ/L (21-32); CHLORIDE LEVEL 107 MEQ/L (98-107); CK-MB VALUE MASS < 1.0 NG/ML (<3.6); CPK CREATINE PHOSPHOKINASE 37 U/L (26-192); CREATININE FOR GFR 0.54 MG/DL (0.55-1.30); GLOMERULAR FILTRATION RATE > 60.0 (>58); GLUCOSE, FASTING 117 MG/DL (70-100); POTASSIUM SERUM 3.9 MEQ/L (3.5-5.1); SODIUM LEVEL 140 MEQ/L (136-145); TROPONIN I < 0.02 NG/ML (< 0.10)
[2018-05-15 21:03] LABS: D-DIMER QUANT 315.32 ng/ml (<500)
[2018-05-15] MEDS: ASPIRIN 325 MG TAB PO (21:04)
== END 2018-05-15 22:09 | disposition left against medical advice (07) ==
LOC: M ED 17:37
DX: R07.9 Chest pain, unspecified (principal); R11.0 Nausea; K21.9 Gastro-esophageal reflux disease without esophagitis; J45.909 Unspecified asthma, uncomplicated; J44.9 Chronic obstructive pulmonary disease, unspecified; F90.9 Attention-deficit hyperactivity disorder, unspecified type; F31.9 Bipolar disorder, unspecified; M19.90 Unspecified osteoarthritis, unspecified site; G40.909 Epilepsy, unspecified, not intractable, without status epilepticus; N28.9 Disorder of kidney and ureter, unspecified; G47.33 Obstructive sleep apnea (adult) (pediatric); G43.909 Migraine, unspecified, not intractable, without status migrainosus; F17.200 Nicotine dependence, unspecified, uncomplicated; Z79.899 Other long term (current) drug therapy; Z88.5 Allergy status to narcotic agent; Z88.0 Allergy status to penicillin; Z91.030 Bee allergy status; Z91.018 Allergy to other foods; Z91.048 Other nonmedicinal substance allergy status
CPT/HCPCS: 71046

== ENCOUNTER → 2018-12-20 | Outpatient (REF) | payer MEDICAID ==
[~2018-12-20] MED LIST changes: -/DIVA50TA PO; -/ESOM40CA; -/ESOM40CA OR; -/ESOM40CA PO; +ALBU83IN; -ANAS1TAB PO; +ANAS1TAB2 PO; +BACI50OI EXT; +BACT800T5 PO; +BENA25CA4 PO; +CLEO300C2 PO; +CURI4PAD20 XX; +CYCL10TA PO; +CYCL5TAB PO; +DIVA500T94 PO; +DULO1CAP4 PO; +FLOM0.4C39 PO; -FLOM5CAP PO; +FLUO20TA28 PO; +MACR100C43 PO; +MELO15TA28 PO; +MILK120011 PO; -MILKSUS PO; +MUPI2OI TOP; +NEXI1CAP3; +NEXI1CAP3 OR; +NEXI1CAP3 PO; +OLAN5TAB PO; +OXYC10TA12 PO; +PROP10TA56 PO; -QUET30XR OR; +SERO300T20 OR; +TIOT18INH INH; +TOPI100T9 PO; -TRAZ-136 PO; +TRAZ-163 PO; +TRAZ-252 PO; -TRAZ50TA11 PO; +VITA50005 PO; +ZOFR4TAB14 PO; -ZOFR4TAB3 PO; +ZONI50CA3 PO
== END ==
LOC: M LAB LCGH 15:40
PROVIDERS: ATTEND Surgery
DX: N60.81 Other benign mammary dysplasias of right breast (principal); Z85.3 Personal history of malignant neoplasm of breast

== ENCOUNTER → 2019-01-22 | Outpatient (CLI) | payer MEDICAID ==
[~2019-01-22] MED LIST changes: -SULF1TAB72 PO; +SULF400T14 PO; -TRAZ-163 PO; +TRAZ-257 PO; +ZONI50CA11 PO; -ZONI50CA3 PO
== END ==
LOC: M OUTALCOH 09:53
PROVIDERS: ATTEND Psychiatry & Neurology Psychiatry
DX: F19.20 Other psychoactive substance dependence, uncomplicated (principal); F12.20 Cannabis dependence, uncomplicated

== ENCOUNTER → 2019-03-14 | Outpatient (REF) | payer MEDICAID ==
[~2019-03-14] MED LIST changes: +SULF1TAB72 PO; -SULF400T14 PO; +TRAZ-163 PO; -TRAZ-257 PO; -ZONI50CA11 PO; +ZONI50CA3 PO
[2019-03-14 19:15] LABS: ALBUMIN 3.8 GM/DL (3.2-5.2); ALT/SGPT 25 U/L (12-78); BILIRUBIN,TOTAL 0.5 MG/DL (0.2-1.0); BLOOD UREA NITROGEN 5 MG/DL (7-18); CALCIUM LEVEL 9.5 MG/DL (8.5-10.1); CARBON DIOXIDE LEVEL 25 MEQ/L (21-32); CHLORIDE LEVEL 105 MEQ/L (98-107); CREATININE FOR GFR 0.65 MG/DL (0.55-1.30); GLOMERULAR FILTRATION RATE > 60.0 (>58); GLUCOSE, FASTING 83 MG/DL (70-100); POTASSIUM SERUM 3.8 MEQ/L (3.5-5.1); SODIUM LEVEL 139 MEQ/L (136-145); TOTAL 25(OH) VITAMIN D 36.2 NG/ML (30.0-100.0); TOTAL PROTEIN 7.5 GM/DL (6.4-8.2)
[2019-03-14 19:39] LABS: PHENOBARBITAL LEVEL 24.4 UG/ML (15.0-40.0)
[2019-03-14 19:49] LABS: HEPATITIS A ANTIBODY IGM NEGATIVE (NEGATIVE); HEPATITIS B CORE ANTIBODY IGM NEGATIVE (NEGATIVE); HEPATITIS B SURFACE ANTIGEN NEGATIVE (NEGATIVE); HEPATITIS C VIRUS ABY INDEX 0.2 INDEX (<0.8); HIV 1&2 SCREEN CENTAUR NEGATIVE (NEGATIVE)
[2019-03-14 21:08] LABS: HEMOGLOBIN A1c 5.2 %
== END ==
LOC: M SFHCLERA 11:49
PROVIDERS: ATTEND Family Medicine
DX: F19.90 Other psychoactive substance use, unspecified, uncomplicated (principal); F31.9 Bipolar disorder, unspecified; E55.9 Vitamin D deficiency, unspecified; G40.909 Epilepsy, unspecified, not intractable, without status epilepticus

== ENCOUNTER → 2019-04-11 | Outpatient (REF) | payer MEDICAID ==
[2019-04-11 11:59] LABS: BASO % 0.2 % (0.0-1.0); HEMATOCRIT 42.5 % (36.0-47.0); HEMOGLOBIN 13.6 g/dl (12.0-15.5); LYMPH # 2.1 10^3/uL (1.5-5.0); LYMPH % 39.8 % (24.0-44.0); MEAN CORPUSCULAR HEMOGLOBIN 29.4 pg (27.0-33.0); MONO # 0.6 10^3/uL (0.0-0.8); MONO % 11.1 % (0.0-5.0); NEUTROPHILS # 2.5 10^3/uL (1.5-8.5); NEUTROPHILS % 48.5 % (36.0-66.0); PLATELET COUNT, AUTOMATED 254 10^3/uL (150-450); RED BLOOD COUNT 4.62 10^6/uL (4.00-5.40); WHITE BLOOD COUNT 5.2 10^3/uL (4.0-10.0)
[2019-04-11 12:09] LABS: ALBUMIN 3.4 GM/DL (3.2-5.2); ALT/SGPT 22 U/L (12-78); BILIRUBIN,TOTAL 0.3 MG/DL (0.2-1.0); BLOOD UREA NITROGEN 7 MG/DL (7-18); CALCIUM LEVEL 8.8 MG/DL (8.5-10.1); CARBON DIOXIDE LEVEL 25 MEQ/L (21-32); CHLORIDE LEVEL 110 MEQ/L (98-107); CREATININE FOR GFR 0.61 MG/DL (0.55-1.30); GLOMERULAR FILTRATION RATE > 60.0 (>58); GLUCOSE, FASTING 95 MG/DL (70-100); HCG, SERUM QUANTITATIVE < 1.0 MIU/ML; POTASSIUM SERUM 4.4 MEQ/L (3.5-5.1); SODIUM LEVEL 140 MEQ/L (136-145); TOTAL PROTEIN 7.1 GM/DL (6.4-8.2)
== END ==
LOC: M SFHCLERA 10:16
PROVIDERS: ATTEND Family Medicine
DX: Z32.01 Encounter for pregnancy test, result positive (principal)

== ENCOUNTER → 2019-11-27 | Outpatient (CLI) | payer MEDICAID ==
[~2019-11-27] MED LIST changes: +CELE100C PO; +CIPR250T3 PO; +CYCL-707 PO; -CYCL10TA PO; +DULO1CAP6 PO; +OLAN15TA PO; +OMEP-221 PO; +ONDA-83 PO; +OXYC1TAB23 PO; -SULF1TAB72 PO; +SULF400T14 PO; +TAMS1CAP17 PO; -TRAZ-163 PO; +TRAZ-257 PO; +ZONI50CA11 PO; -ZONI50CA3 PO
--- NOTE | 2019-11-27 23:34 | REPPI ---
LUMBOSACRAL SPINE: Three AP and lateral views of lumbosacral spine performed. There is no compression fracture or malalignment. There is mild diffuse spurring. There is mild disc space narrowing and subchondral sclerosis at L1-2, L2-3, and L3-4. There is sclerosis and spurring at the posterior facets of L4-5 and L5-S1. Posterior elements are intact. There is a 6 mm calcification in the right abdomen at the level of the L3-4 disc. I cannot exclude a right ureteral calculus. Multiple metallic clips are seen in the pelvis. IMPRESSION: Mild degenerative changes of the lumbar spine, as discussed above, with no acute fracture. Calcification measuring 6 mm in diameter in the right mid abdomen could potentially represent a right ureteral calculus. Further evaluation could be made with noncontrast CT abdomen and pelvis. Electronically Signed by Dagoberto Ventura MD 12/02/2019 06:20 P
== END ==
LOC: M PLAIMG 14:11
PROVIDERS: ATTEND Family Medicine
DX: M51.36 Other intervertebral disc degeneration, lumbar region (principal)

== ENCOUNTER 2019-12-05 21:44 | Emergency (ER) | payer MEDICAID ==
[~2019-12-05] VITALS: Ht 167.6 cm; Wt 126.4 kg
[~2019-12-05 21:44] MED LIST changes: -CELE100C PO; -CIPR250T3 PO; -DULO1CAP6 PO; -OLAN15TA PO; -OMEP-221 PO; -ONDA-83 PO; -OXYC1TAB23 PO; -TAMS1CAP17 PO
[2019-12-05 23:01] LABS: HEMATOCRIT 41.6 % (36.0-47.0); HEMOGLOBIN 13.5 g/dl (12.0-15.5); MEAN CORPUSCULAR HGB CONC 32.5 g/dl (32.0-36.5); MEAN CORPUSCULAR VOLUME 89.5 fl (80.0-96.0); PLATELET COUNT, AUTOMATED 306 10^3/uL (150-450); RED BLOOD COUNT 4.65 10^6/uL (4.00-5.40); WHITE BLOOD COUNT 6.4 10^3/uL (4.0-10.0)
[2019-12-05 23:21] LABS: ALBUMIN 3.8 GM/DL (3.2-5.2); ALT/SGPT 38 U/L (12-78); BILIRUBIN,DIRECT < 0.1 MG/DL (0.0-0.2); BILIRUBIN,TOTAL 0.2 MG/DL (0.2-1.0); BLOOD UREA NITROGEN 9 MG/DL (7-18); CALCIUM LEVEL 8.9 MG/DL (8.5-10.1); CARBON DIOXIDE LEVEL 23 MEQ/L (21-32); CHLORIDE LEVEL 109 MEQ/L (98-107); CREATININE FOR GFR 0.69 MG/DL (0.55-1.30); GLOMERULAR FILTRATION RATE > 60.0 (>58); GLUCOSE, FASTING 89 MG/DL (70-100); LIPASE 192 U/L (73-393); POTASSIUM SERUM 3.9 MEQ/L (3.5-5.1); SODIUM LEVEL 138 MEQ/L (136-145); TOTAL PROTEIN 7.7 GM/DL (6.4-8.2)
[2019-12-05 23:30] LABS: LYMPHOCYTES 40 % (16-44); MONOCYTES 5 % (0-5); NEUTROPHILS 55 % (28-66); PLATELET ESTIMATE NORMAL (NORMAL)
[2019-12-05] MEDS ORDERED: ONDANSETRON 4MG/2ML VIAL IV ONE (23:45)
[2019-12-05] MEDS: MORPHINE 4 MG/ML 1ML VIAL/SYRINGE (J2270) IV PRN (23:59)
[2019-12-06] MEDS ORDERED: HYDROMORPHONE HCL 0.5 MG/ 0.5 ML SYRINGE (J1170 PER 1) IV PRN (02:00)
[2019-12-06] MEDS: MORPHINE 4 MG/ML 1ML VIAL/SYRINGE (J2270) IV PRN (02:26)
[2019-12-06 04:00] VITALS: BP 122/77
[2019-12-06] MEDS ORDERED: PERCOCET 5MG/325MG TAB PO ONE (04:30)
--- NOTE | 2019-12-06 13:41 | REP ---
CT ABDOMEN AND PELVIS WITHOUT IV OR ORAL CONTRAST: RENAL STONE STUDY. HISTORY: Right flank pain. Known kidney stone. Comparison CT study, November 12, 2017. CT FINDINGS: Preliminary digital donor relations coordinator radiograph shows a normal bowel gas pattern. There are multiple surgical clips in the pelvis and right upper quadrant. The lung bases are clear on axial CT images. The liver is normal in size homogeneous in texture. No splenic lesion is seen. Normal adrenal glands are observed. No abnormalities noted in the pancreas. Gallbladder surgically absent. There is moderate right-sided hydronephrosis and hydroureter. The dilated ureter is traced into the pelvis where there is a large obstructing triangular distal ureteral calculus at the level of the upper sacrum. This calculus measures 8.5 mm in greatest diameter. There is periureteral edema associated with this. No bladder calculus is seen. No left ureteral calculus is observed. There is no evidence of left-sided hydronephrosis. No intrarenal calculus is seen on either side. Postsurgical changes are seen along the anterior abdominal wall. There are clips in the pelvis post hysterectomy. No abdominal wall defect is seen. No lytic or osteoblastic skeletal metastatic lesion is seen. IMPRESSION: Obstructing 8 mm right distal ureteral calculus at the level of the upper sacrum with moderate right-sided hydronephrosis. Postoperative changes post hysterectomy and cholecystectomy. Electronically Signed by Kenny Sandoval MD 12/06/2019 02:02 P
[2019-12-07] MEDS ORDERED: PHEN64.8 PO (18:12)
[2019-12-07] MEDS ORDERED: DULO1CAP6 PO (18:12)
[2019-12-07] MEDS ORDERED: OLAN15TA PO (18:12)
[2019-12-07] MEDS ORDERED: CELE100C PO (18:16)
[2019-12-07] MEDS ORDERED: CIPR250T3 PO (18:16)
[2019-12-07] MEDS ORDERED: OXYC1TAB23 PO (18:16)
[2019-12-07] MEDS ORDERED: TAMS1CAP17 PO (18:16)
[2019-12-07] MEDS ORDERED: ONDA-83 PO (18:16)
[2019-12-07] MEDS ORDERED: OMEP-221 PO (18:16)
== END 2019-12-06 04:45 | disposition home or self-care (01) ==
LOC: M ED 21:44
DX: N20.0 Calculus of kidney (principal); J45.909 Unspecified asthma, uncomplicated; G40.909 Epilepsy, unspecified, not intractable, without status epilepticus; F31.9 Bipolar disorder, unspecified; G43.909 Migraine, unspecified, not intractable, without status migrainosus; K21.9 Gastro-esophageal reflux disease without esophagitis; Z79.899 Other long term (current) drug therapy; Z88.0 Allergy status to penicillin; Z88.5 Allergy status to narcotic agent; Z88.8 Allergy status to other drugs, medicaments and biological substances; Z91.018 Allergy to other foods; Z91.030 Bee allergy status; Z91.048 Other nonmedicinal substance allergy status; Z87.891 Personal history of nicotine dependence
CPT/HCPCS: 74176; 80048; 80076; 81001; 83690; 85025; 87086; 96374; 96375; 96376; 99284; J2270; J2405

== ENCOUNTER → 2019-12-05 | Outpatient (REF) | payer MEDICAID ==
[2019-12-05 17:32] LABS: APPEARANCE, URINE HAZY (CLEAR); BACTERIA, URINE AUTO 2+ (NEGATIVE); BILIRUBIN, URINE AUTO NEGATIVE (NEGATIVE); BLOOD, URINE BLOOD 1+ (NEGATIVE); COLOR, URINE YELLOW (YELLOW); GLUCOSE, URINE (UA) AUTO NEGATIVE (NEGATIVE); KETONE, URINE AUTO TRACE mg/dL (NEGATIVE); LEUKOCYTE ESTERASE, URINE AUTO TRACE (NEGATIVE); MUCUS, URINE SMALL (NEGATIVE); NITRITE, URINE AUTO NEGATIVE (NEGATIVE); PROTEIN, URINE AUTO NEGATIVE (NEGATIVE); RBC, URINE AUTO 5 /HPF (0-3); SPECIFIC GRAVITY URINE AUTO 1.017 (1.002-1.035); SQUAMOUS EPITHELIAL CELL UR AU 9 /HPF (0-6); UROBILINOGEN, URINE AUTO 0.2 mg/dL (0.0-2.0); WBC, URINE AUTO 12 /HPF (0-3)
== END ==
LOC: M SMT 16:35
PROVIDERS: ATTEND Nurse Practitioner Women's Health
DX: N13.2 Hydronephrosis with renal and ureteral calculous obstruction (principal)

== ENCOUNTER 2019-12-07 16:23 | Inpatient (IN) | payer MEDICAID ==
[~2019-12-07] VITALS: Ht 167.6 cm; Wt 126.4 kg
[2019-12-07] MEDS ORDERED: TAMSULOSIN 0.4 MG CAP PO ONE (17:30)
[2019-12-07] MEDS ORDERED: MORPHINE 4 MG/ML 1ML VIAL/SYRINGE (J2270) IV ONE (17:30)
[2019-12-07] MEDS ORDERED: ONDANSETRON 4MG/2ML VIAL IV ONE (17:30)
[2019-12-07] MEDS ORDERED: OLAN15TA PO (18:12)
[2019-12-07] MEDS ORDERED: PHEN64.8 PO (18:12)
[2019-12-07] MEDS ORDERED: DULO1CAP6 PO (18:12)
[2019-12-07] MEDS ORDERED: CIPR250T3 PO (18:16)
[2019-12-07] MEDS ORDERED: OMEP-221 PO (18:16)
[2019-12-07] MEDS ORDERED: CELE100C PO (18:16)
[2019-12-07] MEDS ORDERED: OXYC1TAB23 PO (18:16)
[2019-12-07] MEDS ORDERED: TAMS1CAP17 PO (18:16)
[2019-12-07] MEDS ORDERED: ONDA-83 PO (18:16)
[2019-12-07] MEDS ORDERED: IPRATROPIUM 0.5MG/ALBUTEROL 2.5MG INH SOL UD 3ML (DUONEB) NEB PRN (19:00)
[2019-12-07] MEDS ORDERED: KETOROLAC 30 MG/ML 1ML VIAL IV ONE (19:00)
[2019-12-07] MEDS ORDERED: ONDANSETRON 4MG/2ML VIAL IV PRN (19:00)
--- NOTE | 2019-12-07 19:11 | HPEPDOC ---
General Date of Admission 12/07/19 Date of Service: Dec 07, 2019 Chief Complaint The patient is a 44-year-old female admitted with a reason for visit of Flank Pain. Source: Patient, RN/MD History of Present Illness 44 year old female with PMH of renal stones, morbid obesity, TAIWO, COPD, seizure disorder, GERD , Breast cancer presented to ED with 2 weeks of low back pain and right flank and right iliac fossa pain. The pain is 10/10 in intensity sharp stabbing in nature and radiates to the back. She went to see her PMD on November 26 had a lumber spine xray done which showed Calcification measuring 6 mm in diameter in the right mid abdomen could potentially represent a right ureteral calculus. She was sent to [facility] and seen there on December [address] abdomen pelvis done with Obstructing 8 mm right distal ureteral calculus at the level of the upper sacrum with moderate right-sided hydronephrosis. She was sent to the ED. In the ED after morphine, ivf and flomax her pain resolved and was discharged home with oral pain meds to follow up with urology. She came came today with persistent intractable pain as described above. Dr Storm spoke with Dr Bonilla and he plans to take her to OR tomorrow. Home Medications Scheduled Anastrozole (Anastrozole) 1 Mg Tab, 1 MG PO DAILY, (Reported) Celecoxib (Celebrex) 100 Mg Capsule, 100 MG PO DAILY, (Reported) Ciprofloxacin HCl (Ciprofloxacin HCl) 250 Mg Tablet, 250 MG PO BID, (Reported) started 12/04/19 x 7 days Duloxetine Hcl (Duloxetine HCl) 60 Mg Capsule.dr, 60 MG PO DAILY, (Reported) Fluoxetine HCl (Fluoxetine HCl) 20 Mg Tab, 20 MG PO DAILY, (Reported) Olanzapine (Olanzapine) 15 Mg Tablet, 15 MG PO DAILY, (Reported) Omeprazole (Omeprazole) 40 Mg Capsule.dr, 40 MG PO BID, (Reported) Phenobarbital (Phenobarbital) 64.8 Mg Tab, 64.8 MG PO QAM, (Reported) Phenobarbital (Phenobarbital) 64.8 Mg Tablet, 129.6 MG PO QPM, (Reported) Tamsulosin Hcl (Tamsulosin HCl) 0.4 Mg Capsule, 0.4 MG PO DAILY, (Reported) Tiotropium [place] Monohydrate (Spiriva) 5 Inhalation/Inhaler Powd, 1 PUFF INH DAILY, (Reported) Zonisamide (Zonisamide) 50 Mg Cap, 50 MG PO BID, (Reported) Scheduled PRN Cyclobenzaprine HCl (Cyclobenzaprine HCl) 5 Mg Tab, 5 MG PO TID PRN for MUSCLE SPASMS, (Reported) Ipratropium/Albuterol Sulfate (Combivent Respimat 20-100 Mcg) 1 Aer Aer, 1 PUFF PO Q4H PRN for SHORTNESS OF BREATH, (Reported) Ondansetron HCl (Ondansetron HCl) 4 Mg Tablet, 4 MG PO Q6H PRN for NAUSEA OR VOMITING, (Reported) Oxycodone HCl/Acetaminophen (Oxycodone-Acetaminophen 5-325) 1 Each Tablet, 1 TAB PO Q6H PRN for PAIN, (Reported) Allergies Coded Allergies: Penicillins (Verified Allergy, Severe, RASH, SWELLING, 12/05/19) bee venom protein (honey bee) (Verified Allergy, Severe, SWELLING, 12/05/19) TAPE (Verified Allergy, Intermediate, RASH, 11/23/17) tramadol (Verified Allergy, Intermediate, RASH, 12/05/19) tomato (Verified Allergy, Mild, VOMITTING, 12/05/19) codeine (Verified Allergy, Unknown, VOMITTING, 12/05/19) ketorolac (Verified Adverse Reaction, Mild, VOMITTING, 12/05/19) Past Medical History Medical History BREAST CANCER STAGE 1 2014 SLEEP APNEA- USES CPAP MACHINE SOMETIMES. SEIZURE DISORDER- MORBID OBESITY BIPOLAR ASTHMA, COPD ARTHRITIS MIGRAINES GERD KIDNEY STONES CHRONIC BACK PAIN PLANTER FIBROMATOSIS URINARY INCONTINENCE STRESS and URGE Surgical History HYSTERECTOMY CHOLECYSTECTOMY APPENDECTOMY CYSTOSCOPY, URETEROSCOPY, STENT PLACEMENT 07/29/14 LEFT BREAST MASTECTOMY 07/16/15 RIGHT KNEE SURGERY 2006,2007 TEETH EXTRACTIONS Family History FATHER: 59 YRS, Rectal cancer MOTHER: ALIVE DIABETES, Uterine cancer Social History * Smoker: current smoker Alcohol: occationally Drugs: marijuana, IV drug use (IV parmjit history. ) A-FIB/CHADSVASC A-FIB History Current/History of A-Fib/PAF?: No Review of Systems Constitutional: Denies: Chills, Fever, Night Sweats Eyes: Denies: Pain, Vision change ENT: Denies: Head Aches, Ear Pain, Dysphagia Skin: Denies: Rash, Lesions, Breakdown Pulmonary: Denies: Dyspnea, Cough Cardiovascular: Denies: Chest Pain, Palpitations, Orthopnea, Paroxysmal Noc. Dyspnea, Lt Headedness Gastrointestinal: Reports: Nausea, Abdominal Pain, Constipation Genitourinary: Reports: Incontinence Hematologic: Denies: Bruising, Bleeding Excessively Musculoskeletal: Reports: Back Pain (low back), Spasms Neurological: Denies: Weakness, Numbness, Change in speech, Confusion Physical Examination General Exam: Positive: Alert, Cooperative, Moderate Distress Eye Exam: Positive: PERRLA, Conjunctiva & lids normal, EOMI; Negative: Sclera icteric ENT Exam: Positive: Atraumatic, Mucous membr. moist/pink, Pharynx Normal Neck Exam: Positive: Supple; Negative: JVD, thyromegaly Chest Exam: Positive: Clear to auscultation, Normal air movement Heart Exam: Positive: Rate Normal, Regular Rhythm, Normal S1, Normal S2; Negative: Murmurs, Rubs Abdomen Exam: Positive: Normal bowel sounds, Soft, Tenderness (in the right illiac fossa and right lumber area), Other (obes) Extremity Exam: Negative: Clubbing, Cyanosis, Edema Skin Exam: Positive: Nl turgor and temperature; Negative: Breakdown, Lesion Neuro Exam: Positive: Normal Gait, Normal Speech, Strength at 5/5 X4 ext, Normal Tone Psych Exam: Positive: Memory Intact, Oriented x 3 Vital Signs Vital Signs Date Time Temp Pulse Resp B/P (MAP) Pulse Ox O2 Delivery O2 Flow Rate FiO2 12/07/19 17:51 18 97 Room Air 12/07/19 16:58 12/07/19 16:23 98.6 91 Laboratory Data Labs 24H Laboratory Tests 2 12/07/19 17:28: POC Glucose (Misc Panel) 88, POC Sodium (Misc Panel) 140, POC Potassium (Misc Panel) 4.0, POC Chloride (Misc Panel) 102, POC Total CO2 (Misc Panel) 25.0, POC Blood Urea Nitrogen (Misc Panel 7L, POC Ionized Calcium (Misc Panel) 4.9, POC Creatinine (Misc Panel) 0.6, POC Hematocrit (Misc Panel) 41.0 Assessment/Plan 44 year old female with PMH of renal stones, morbid obesity, TAIWO, COPD, Bipolar, seizure disorder, GERD , Breast cancer presented to ED with 2 weeks of low back pain and right flank and right iliac fossa pain. By an Outpatient CT scan she was found to have Obstructing 8 mm right distal ureteral calculus at the level of the upper sacrum with moderate right-sided hydronephrosis. She was admitted for right ureteric stone with right obstructive uropathy. Right ureteric stone with right hydronephrosis Urine culture negative on cipro will continue plan for OR tomorrow with [facility]. Pain control with Morphine and toradol Flomax, IVF. NPO midnight Morbid obesity/TAIWO TAIWO protocol COPD spiriva duonebs prn Bipolar home meds Olanzapine, fluoxetine, cymbalta Seizure disorder home meds. Zonisamide, pheobarbital GERD PPI Plan / VTE VTE Prophylaxis Ordered?: Yes SANTIAGO HERNANDEZ MD Dec 07, 2019 18:19
[2019-12-07] MEDS: MORPHINE 4 MG/ML 1ML VIAL/SYRINGE (J2270) IV PRN ×2 (19:35→23:32)
[2019-12-07] MEDS: NS 1,000 ML IV SCH (20:42)
[2019-12-07] MEDS ORDERED: CIPROFLOXACIN 250MG TAB PO SCH (21:00)
[2019-12-07 22:00] VITALS: BP 157/84
[2019-12-07] MEDS: DICLOFENAC EPOLAMINE 1.3 % PATCH TOP SCH (22:07)
[2019-12-08] MEDS ORDERED: KETOROLAC 30 MG/ML 1ML VIAL IV PRN
[2019-12-08] MEDS: MORPHINE 4 MG/ML 1ML VIAL/SYRINGE (J2270) IV PRN (04:17)
[2019-12-08 06:00] VITALS: BP 123/71
[2019-12-08 06:49] LABS: HEMATOCRIT 39.6 % (36.0-47.0); HEMOGLOBIN 12.6 g/dl (12.0-15.5); MEAN CORPUSCULAR HEMOGLOBIN 29.1 pg (27.0-33.0); MEAN CORPUSCULAR HGB CONC 31.8 g/dl (32.0-36.5); MEAN CORPUSCULAR VOLUME 91.5 fl (80.0-96.0); PLATELET COUNT, AUTOMATED 286 10^3/uL (150-450); RED BLOOD COUNT 4.33 10^6/uL (4.00-5.40); WHITE BLOOD COUNT 4.3 10^3/uL (4.0-10.0)
[2019-12-08 07:21] LABS: BLOOD UREA NITROGEN 8 MG/DL (7-18); CALCIUM LEVEL 8.9 MG/DL (8.5-10.1); CARBON DIOXIDE LEVEL 28 MEQ/L (21-32); CHLORIDE LEVEL 110 MEQ/L (98-107); CREATININE FOR GFR 0.57 MG/DL (0.55-1.30); GLOMERULAR FILTRATION RATE > 60.0 (>58); GLUCOSE, FASTING 94 MG/DL (70-100); POTASSIUM SERUM 4.4 MEQ/L (3.5-5.1); SODIUM LEVEL 143 MEQ/L (136-145)
[2019-12-08 07:29] LABS: ATYPICAL LYMPH 5 % (0-5); EOSINOPHILS 1 % (0-3); LYMPHOCYTES 46 % (16-44); MONOCYTES 5 % (0-5); NEUTROPHILS 43 % (28-66); PLATELET ESTIMATE NORMAL (NORMAL)
[2019-12-08 07:30] LABS: ANISOCYTOSIS 1+
--- NOTE | 2019-12-08 07:48 | SMCUROLCON ---
Urology Consultation General Date of Consultation 12/08/19 Reason For Consultation This patient is seen for Ureteral Stone. History of Present Illness This is a 44 y/o F w/ a PMH significant for seizures, COPD, breast cancer, and kidney stones, admitted to the hospital yesterday evening for intractable R fl ank pain due to an obstructing 8mm distal R ureteral stone. The pain started a week or so ago. She has been in to the ER 2-3 times and was seen in the urology clinic this past Sunday. She was being set up for outpt surgery for her stone, but due to severe pain she presented to the ER again yesterday. She notes nausea and vomiting. She denies dysuria. She denies fevers or chills. A urine culture obtained a few days ago was negative. Past Medical History Medical History see HPI Surgical Hstory L mastectomy R knee surgery R ureteroscopy in 2014 Medications Current Medications Current Medications Medications (Trade) Dose Ordered Sig/Garry Route PRN Reason Start Time Stop Time Status Last Admin Dose Admin Albuterol/ Ipratropium (Duoneb (Ipr 0.5mg/Alb 2.5mg)) 3 ml Q6HP PRN NEB SOB/WHEEZING 12/07/19 19:00 Ciprofloxacin (Cipro) 250 mg BID PO 12/07/19 21:00 12/07/19 22:07 Diclofenac Epolamine (Flector 1.3%) 1 patch Q12H TOP 12/07/19 21:00 12/07/19 22:07 Duloxetine HCl (Cymbalta) 60 mg DAILY PO 12/08/19 09:00 Fluoxetine HCl (PROzac) 20 mg DAILY PO 12/08/19 09:00 Home Med (Med Rec Complete!) ASDIRECTED XX 12/07/19 18:30 12/07/19 18:24 DC Ketorolac Tromethamine (ToRADol) 15 mg Q6H PRN IV PAIN 12/08/19 00:00 12/13/19 00:00 Morphine Sulfate (Morphine Sulfate Inj) 4 mg Q4HP PRN IV SEVERE PAIN (PS 8-10) 12/07/19 19:00 12/08/19 04:17 Olanzapine (ZyPREXA) 15 mg DAILY PO 12/08/19 09:00 Omeprazole (PriLOSEC) 40 mg BID PO 12/08/19 09:00 Ondansetron HCl (ZOFRAN INJection) 4 mg Q6HP PRN IV NAUSEA OR VOMITING 12/07/19 19:00 Phenobarbital (PHENobarbitaL) 60 mg QAM PO 12/08/19 09:00 Phenobarbital (PHENobarbitaL) 120 mg DAILY@1800 PO 12/08/19 18:00 Sodium Chloride 1,000 ml @ 75 mls/hr [id number] IV 12/07/19 19:00 12/07/19 20:42 Tamsulosin HCl (Flomax) 0.4 mg DAILY PO 12/08/19 09:00 Tiotropium [place] (Spiriva Handihaler) 1 inhalation DAILY@0800 INH 12/08/19 08:00 Zonisamide (Zonegran) 50 mg BID PO 12/08/19 09:00 Allergies Allergies: Coded Allergies: Penicillins (Verified Allergy, Severe, RASH, SWELLING, 12/05/19) bee venom protein (honey bee) (Verified Allergy, Severe, SWELLING, 12/05/19) TAPE (Verified Allergy, Intermediate, RASH, 11/23/17) tramadol (Verified Allergy, Intermediate, RASH, 12/05/19) tomato (Verified Allergy, Mild, VOMITTING, 12/05/19) codeine (Verified Allergy, Unknown, VOMITTING, 12/05/19) ketorolac (Verified Adverse Reaction, Mild, VOMITTING, 12/05/19) Review of Systems Constitutional: Denies: Fever, Chills, Sweats, Weakness, Malaise Pulmonary: Denies: Dyspnea, Cough Cardiovascular: Denies Chest Pain, Denies Palpitations Gastrointestinal: Reports: Nausea, Vomiting Genitourinary: Denies: Dysuria, Frequency, Incontinence, Hematuria Musculoskeletal: Reports: Back Pain (R flank) Psych: Reports: Mood Normal Physical Examination General Exam: Alert, No Acute Distress Chest Exam: Normal air movement Heart Exam: Regular Rhythm Abdomen Exam: Soft Skin Exam: Nl turgor and temperature Neuro Exam: Normal Speech Psych Exam: Mental status NL, Mood NL Vital Signs/I&O Vital Signs Date Time Temp Pulse Resp B/P (MAP) Pulse Ox O2 Delivery O2 Flow Rate FiO2 12/08/19 06:33 2.0 12/08/19 06:00 97.4 74 18 123/71 (88) 88 Room Air I&O- Last 24 Hours up to 6 AM 12/08/19 05:59 Intake Total 0 ml Output Total 250 ml Balance -250 ml Laboratory Data 24H Labs Laboratory Tests 2 12/07/19 17:28: POC Glucose (Misc Panel) 88, POC Sodium (Misc Panel) 140, POC Potassium (Misc Panel) 4.0, POC Chloride (Misc Panel) 102, POC Total CO2 (Misc Panel) 25.0, POC Blood Urea Nitrogen (Misc Panel 7L, POC Ionized Calcium (Misc Panel) 4.9, POC Creatinine (Misc Panel) 0.6, POC Hematocrit (Misc Panel) 41.0 12/08/19 06:30: Neutrophils (%) (Auto) , Nucleated Red Blood Cells % (auto) 0.0, Neutrophils 43, Lymphocytes (Manual) 46H, Monocytes (Manual) 5, Eosinophils (Manual) 1, Atypical Lymphocytes 5, Anisocytosis 1+, Platelet Estimate NORMAL, Anion Gap 5L, Glomerular Filtration Rate > 60.0, Calcium Level 8.9 CBC/BMP Laboratory Tests 12/08/19 06:30 Microbiology Microbiology 12/07/19 Respiratory Virus Panel (PCR) (KENDELL) - Final, Complete Assessment This trent 44 y/o F w/ intractable pain from an obstructing distal R ureteral stone. It was recommended that we take her to the OR today for cystoscopy, R ureteroscopy w/ laser lithotripsy, and R ureteral stent placement. After a discussion of the risks and benefits of surgery, informed consent was signed. Plan - OR this morning for surgery - NPO - levaquin 500mg IV OCOR - patient may resume regular diet and may be discharged home postop assuming her pain is better controlled PERRI VAZQUEZ MD Dec 08, 2019 07:48
[2019-12-08] MEDS ORDERED: TIOTROPIUM INHALER/CAPSULE (SPIRIVA) INH SCH (08:00)
[2019-12-08] MEDS: NS 1,000 ML IV SCH (08:20)
[2019-12-08] MEDS ORDERED: LevoFLOXacin IV 500 MG in IV 1 EA IV ONE (08:30)
[2019-12-08] MEDS ORDERED: propofoL 200 MG/20 ML VIAL As Ordered ONE ×2 (08:49→10:03)
[2019-12-08] MEDS ORDERED: PHENobarbitaL 30 MG TAB PO SCH ×2 (09:00→18:00)
[2019-12-08] MEDS ORDERED: OMEPRAZOLE 20 MG CAP PO SCH (09:00)
[2019-12-08] MEDS ORDERED: ZONISAMIDE 50 MG CAP (ZONEGRAN) PO SCH (09:00)
[2019-12-08] MEDS ORDERED: FLUoxetine 20 MG CAP PO SCH (09:00)
[2019-12-08] MEDS ORDERED: DULoxetine 30 MG CAP (CYMBALTA) PO SCH (09:00)
[2019-12-08] MEDS ORDERED: TAMSULOSIN 0.4 MG CAP PO SCH (09:00)
[2019-12-08] MEDS ORDERED: OLANZapine 5 MG TAB PO SCH (09:00)
[2019-12-08] MEDS ORDERED: LevoFLOXacin 500MG/100ML IV BAG (J1956 PER 250MG) As Ordered ONE (09:04)
[2019-12-08] MEDS: ISOVUE-300 61% 50ML VIAL As Ordered ONE ×2 (09:24→09:25)
[2019-12-08] MEDS ORDERED: fentaNYL 100 MCG/2 ML INJECTION (J3010) As Ordered ONE (10:02)
[2019-12-08] MEDS ORDERED: LIDOCAINE 2% 100MG/5ML SDV (FOR ANES.) As Ordered ONE (10:03)
[2019-12-08] MEDS ORDERED: MIDAZOLAM INJ 2MG/2ML VIAL (J2250 PER 1MG) As Ordered ONE (10:05)
[2019-12-08] MEDS ORDERED: LR 1,000 ML IV SCH (10:15)
[2019-12-08] MEDS ORDERED: fentaNYL 100 MCG/2 ML INJECTION (J3010) IV PRN (10:15)
[2019-12-08] MEDS ORDERED: ONDANSETRON 4MG/2ML VIAL IV PRN (10:15)
[2019-12-08 11:00] VITALS: BP 141/93
[2019-12-08 11:30] VITALS: BP_SYST 139; BP_SYST 141; BP_DIAS 85; BP_DIAS 93
[2019-12-08] MEDS: DICLOFENAC EPOLAMINE 1.3 % PATCH TOP SCH (11:48)
--- NOTE | 2019-12-08 12:38 | REP ---
RETROGRADE PYELOGRAM: Two views. HISTORY: Right ureteral stent placement. 13 seconds of fluoroscopy time is reported. FINDINGS: A sequence of two last image hold fluoroscopically obtained spot radiographs of the abdomen document right ureteral cannulation, contrast injection, and stent placement. Electronically Signed by Kenny Sandoval MD 12/08/2019 05:04 P
--- NOTE | 2019-12-08 13:27 | DS.PDOC ---
Discharge Summary General Date of Admission Dec 07, 2019 at 18:44 Date of Discharge 12/08/19 Discharge Summary PROCEDURES PERFORMED DURING STAY: Cystoscopy, R ureteroscopy w/ laser lithotripsy, and R ureteral stent placement. DISCHARGE DIAGNOSES: Right distal ureteric stone with right hydronephrosis. SECONDARY DIAGNOSIS: KIDNEY STONES BREAST CANCER STAGE 1 2015 s/p Left Mastectomy SLEEP APNEA- USES CPAP MACHINE SOMETIMES. SEIZURE DISORDER- MORBID OBESITY BIPOLAR ASTHMA, COPD ARTHRITIS MIGRAINES GERD CHRONIC BACK PAIN PLANTER FIBROMATOSIS URINARY INCONTINENCE STRESS and URGE COMPLICATIONS/CHIEF COMPLAINT: Ureteral Stone. HOSPITAL COURSE: 44 year old female with PMH of renal stones, morbid obesity, TAIWO, COPD, Bipolar, seizure disorder, GERD , Breast cancer presented to ED with 2 weeks of low back pain and right flank and right iliac fossa pain. By an Outpatient CT scan she was found to have Obstructing 8 mm right distal ureteral calculus at the level of the upper sacrum with moderate right-sided hydronephrosis. She was admitted for right ureteric stone with right obstructive uropathy. Right ureteric stone with right hydronephrosis Urine culture negative on cipro will continue s/p OR with [facility] on 12/07 Morbid obesity/TAIWO TAIWO protocol COPD spiriva duonebs prn Bipolar home meds Olanzapine, fluoxetine, cymbalta Seizure disorder home meds. Zonisamide, pheobarbital GERD PPI DISCHARGE MEDICATIONS: Please see below. ALLERGIES: Please see below. PHYSICAL EXAMINATION ON DISCHARGE: VITAL SIGNS: Please see below. General Exam: Positive: Alert, Cooperative, Moderate Distress Eye Exam: Positive: PERRLA, Conjunctiva & lids normal, EOMI; Negative: Sclera icteric ENT Exam: Positive: Atraumatic, Mucous membr. moist/pink, Pharynx Normal Neck Exam: Positive: Supple; Negative: JVD, thyromegaly Chest Exam: Positive: Clear to auscultation, Normal air movement Heart Exam: Positive: Rate Normal, Regular Rhythm, Normal S1, Normal S2; Negative: Murmurs, Rubs Abdomen Exam: Positive: Normal bowel sounds, Soft, Tenderness (in the right illiac fossa and right lumber area), Other (obes) Extremity Exam: Negative: Clubbing, Cyanosis, Edema Skin Exam: Positive: Nl turgor and temperature; Negative: Breakdown, Lesion Neuro Exam: Positive: Normal Gait, Normal Speech, Strength at 5/5 X4 ext, Normal Tone Psych Exam: Positive: Memory Intact, Oriented x 3 LABORATORY DATA: Please see below. ACTIVITY: [As tolerated]. DIET: As tolerated DISPOSITION: 01 Home, Self-Care. DISCHARGE INSTRUCTIONS: Follow up with Dr Bonilla in 2 to 3 weeks Follow up with PMD in 1-2 weeks DISCHARGE CONDITION: [Stable]. TIME SPENT ON DISCHARGE: 35 minutes. Vital Signs/I&Os Vital Signs Date Time Temp Pulse Resp B/P (MAP) Pulse Ox O2 Delivery O2 Flow Rate FiO2 12/08/19 11:30 98.0 68 20 139/85 (103) 96 Room Air 12/08/19 10:45 2.0 I&O- Last 24 Hours up to 6 AM 12/08/19 06:00 Intake Total 0 ml Output Total 250 ml Balance -250 ml Laboratory Data Labs 24H Laboratory Tests 2 12/07/19 17:28: POC Glucose (Misc Panel) 88, POC Sodium (Misc Panel) 140, POC Potassium (Misc Panel) 4.0, POC Chloride (Misc Panel) 102, POC Total CO2 (Misc Panel) 25.0, POC Blood Urea Nitrogen (Misc Panel 7L, POC Ionized Calcium (Misc Panel) 4.9, POC C reatinine (Misc Panel) 0.6, POC Hematocrit (Misc Panel) 41.0 12/08/19 06:30: Neutrophils (%) (Auto) , Nucleated Red Blood Cells % (auto) 0.0, Neutrophils 43, Lymphocytes (Manual) 46H, Monocytes (Manual) 5, Eosinophils (Manual) 1, Atypical Lymphocytes 5, Anisocytosis 1+, Platelet Estimate NORMAL, Anion Gap 5L, Glomerular Filtration Rate > 60.0, Calcium Level 8.9 12/08/19 09:26: CBC/BMP Laboratory Tests 12/08/19 06:30 Microbiology Microbiology 12/07/19 Respiratory Virus Panel (PCR) (KENDELL) - Final, Complete Discharge Medications Scheduled Anastrozole (Anastrozole) 1 Mg Tab, 1 MG PO DAILY, (Reported) Celecoxib (Celebrex) 100 Mg Capsule, 100 MG PO DAILY, (Reported) Ciprofloxacin HCl (Ciprofloxacin HCl) 250 Mg Tablet, 250 MG PO BID, (Reported) started 12/04/19 x 7 days Duloxetine Hcl (Duloxetine HCl) 60 Mg Capsule., 60 MG PO DAILY, (Reported) Fluoxetine HCl (Fluoxetine HCl) 20 Mg Tab, 20 MG PO DAILY, (Reported) Olanzapine (Olanzapine) 15 Mg Tablet, 15 MG PO DAILY, (Reported) Omeprazole (Omeprazole) 40 Mg Capsule.dr, 40 MG PO BID, (Reported) Phenobarbital (Phenobarbital) 64.8 Mg Tab, 64.8 MG PO QAM, (Reported) Phenobarbital (Phenobarbital) 64.8 Mg Tablet, 129.6 MG PO QPM, (Reported) Tamsulosin Hcl (Tamsulosin HCl) 0.4 Mg Capsule, 0.4 MG PO DAILY, (Reported) Tiotropium [place] Monohydrate (Spiriva) 5 Inhalation/Inhaler Powd, 1 PUFF INH DAILY, (Reported) Zonisamide (Zonisamide) 50 Mg Cap, 50 MG PO BID, (Reported) Scheduled PRN Cyclobenzaprine HCl (Cyclobenzaprine HCl) 5 Mg Tab, 5 MG PO TID PRN for MUSCLE SPASMS, (Reported) Ipratropium/Albuterol Sulfate (Combivent Respimat 20-100 Mcg) 1 Aer Aer, 1 PUFF PO Q4H PRN for SHORTNESS OF BREATH, (Reported) Ondansetron HCl (Ondansetron HCl) 4 Mg Tablet, 4 MG PO Q6H PRN for NAUSEA OR VOMITING, (Reported) Oxycodone HCl/Acetaminophen (Oxycodone-Acetaminophen 5-325) 1 Each Tablet, 1 TAB PO Q6H PRN for PAIN, (Reported) Allergies Coded Allergies: Penicillins (Verified Allergy, Severe, RASH, SWELLING, 12/05/19) bee venom protein (honey bee) (Verified Allergy, Severe, SWELLING, 12/05/19) TAPE (Verified Allergy, Intermediate, RASH, 11/23/17) tramadol (Verified Allergy, Intermediate, RASH, 12/05/19) tomato (Verified Allergy, Mild, VOMITTING, 12/05/19) codeine (Verified Allergy, Unknown, VOMITTING, 12/05/19) ketorolac (Verified Adverse Reaction, Mild, VOMITTING, 12/05/19) SANTIAGO HERNANDEZ MD Dec 08, 2019 13:27
--- NOTE | 2019-12-10 10:58 | RO ---
DATE OF PROCEDURE: 12/08/2019 PREPROCEDURE DIAGNOSIS: Right ureteral stone. POSTPROCEDURE DIAGNOSIS: Right ureteral stone. PROCEDURE: Cystoscopy, right ureteroscopy with laser lithotripsy and basket extraction of stones, right retrograde pyelogram with intraoperative interpretation of images, right ureteral stent placement. SURGEON: Dr. Ilya Bonilla ELECTRICIAN DECK: None. ANESTHESIA: General. OPERATIVE INDICATIONS: This is a 44-year-old female who was found to have an obstructing 8 mm distal right ureteral stone. She was brought to the operating room today for treatment. DESCRIPTION OF PROCEDURE: The patient was brought to the operating room and general anesthesia was induced. Prophylactic antibiotics were infused. She was placed in the dorsal lithotomy position and prepped and draped in the usual sterile fashion. A rigid cystoscope was inserted into the urethral meatus and advanced into the bladder. A guidewire was advanced into the right collecting system. I then went up the right collecting system with a short semirigid ureteroscope and within the distal ureter the 8 mm stone was seen. The stone was fragmented into smaller pieces using a 272 micron laser fiber. All the fragments were removed using a basket. Once done, retrograde pyelogram was performed and notable for moderate right hydronephrosis with no extravasation. I then removed the ureteroscope and then utilized the previously placed wire to advance a 6 [place] x 22-32 cm JJ ureteral stent up into the right collecting system. The wire was removed and there were adequate curls of the stent in the right renal pelvis and in the bladder. The bladder was then emptied of all fluids and this marked the conclusion of the procedure. The patient was taken out of the dorsal lithotomy position, awakened from anesthesia and transported to the recovery room in stable condition. Estimated blood loss: 5 mL. Complications: None. Specimen: Kidney stones. Plan: The patient will followup in the clinic in a few weeks for stent removal.
== END 2019-12-08 13:05 | disposition home or self-care (01) | DRG 446 ==
LOC: M ED 16:23 → M ED INP 18:44 → ENRESERV 19:04 → M MS5PR 19:57
PROVIDERS: ADMIT Internal Medicine Nephrology; ATTEND Internal Medicine Nephrology
PROC: 0T767DZ Dilation of Right Ureter with Intraluminal Device, Via Natural or Artificial Opening (ICD-10-PCS; 2019-12-08)
PROC: BT0 Imaging, Urinary System, Plain Radiography (ICD-10-PCS; 2019-12-08)
PROC: 0TC68ZZ Extirpation of Matter from Right Ureter, Via Natural or Artificial Opening Endoscopic (ICD-10-PCS; principal; 2019-12-08 08:45)
DX: N13.1 Hydronephrosis with ureteral stricture, not elsewhere classified (principal); E66.01 Morbid (severe) obesity due to excess calories; G47.33 Obstructive sleep apnea (adult) (pediatric); J44.9 Chronic obstructive pulmonary disease, unspecified; G40.909 Epilepsy, unspecified, not intractable, without status epilepticus; K21.9 Gastro-esophageal reflux disease without esophagitis; Z85.3 Personal history of malignant neoplasm of breast; M72.2 Plantar fascial fibromatosis; G43.909 Migraine, unspecified, not intractable, without status migrainosus; F31.9 Bipolar disorder, unspecified; N39.46 Mixed incontinence; F17.200 Nicotine dependence, unspecified, uncomplicated; Z79.899 Other long term (current) drug therapy; Z88.0 Allergy status to penicillin; Z88.5 Allergy status to narcotic agent; Z88.8 Allergy status to other drugs, medicaments and biological substances; Z91.030 Bee allergy status; Z91.048 Other nonmedicinal substance allergy status; Z91.018 Allergy to other foods; Z90.49 Acquired absence of other specified parts of digestive tract; Z90.12 Acquired absence of left breast and nipple; Z11.59 Encounter for screening for other viral diseases

== ENCOUNTER → 2020-07-12 | Outpatient (CLI) | payer MEDICAID ==
[~2020-07-12] MED LIST changes: +CELE100C PO; +CIPR250T3 PO; +DULO1CAP6 PO; +OLAN15TA PO; +OMEP-221 PO; +ONDA-83 PO; +OXYC1TAB23 PO; +RISP-8 PO; -RISP1TAB3 PO; +TAMS1CAP17 PO
== END ==
LOC: M LABSMTC 13:43
PROVIDERS: ATTEND Pediatrics
DX: Z20.822 Contact with and (suspected) exposure to COVID-19 (principal)

== ENCOUNTER → 2020-08-03 | Outpatient (CLI) | payer MEDICAID ==
--- NOTE | 2020-08-03 17:20 | REP ---
INDICATION: RIGHT BREAST PAIN/LUMP; RIGHT BREAST LUMP/ PAIN. HX OF BREAST CANCER; RIGHT BREAST PAIN/LUMP. HX OF BREAST CANCER. COMPARISON: Comparison mammography July 20, 2017 and June 16, 2015. TECHNIQUE: A skin marker is affixed to the skin at the site of the palpable abnormality and pain. Magnified focal spot-compression CC MLO and mL views of the right breast are obtained in addition to routine CC and MLO views. 3D tomography in the mediolateral projection is acquired and targeted right breast sonography is performed. This mammogram was interpreted with the aid of an FDA-approved computer-aided detection system. FINDINGS: There is a contour deformity due to previous excision in the right breast. This is in the region of the palpable lump. No dominant density is seen mammographically. Scattered fibroglandular elements are noted unchanged. No micro calcific grouping or architectural distortion is seen. No suspicious mammographic finding. The [facility] volumetric breast density pattern is B. . Targeted ultrasound: Targeted right breast sonography demonstrates fairly homogeneous background echotexture. No cyst, mass, acoustic shadowing or architectural distortion is seen by ultrasound. IMPRESSION: BIRADS/ACR category 2 benign right breast mammographic and sonographic findings. RECOMMENDATION: Repeat screening mammography recommended 1 year (for women over 40). The patient letter being requested is M2. <Electronically signed by Huan Sandoval > 08/03/20 [id number]
== END ==
LOC: M WHC 15:26
PROVIDERS: ATTEND Family Medicine
DX: Z12.31 Encounter for screening mammogram for malignant neoplasm of breast (principal)
CPT/HCPCS: 76641; 77065; G0279

== ENCOUNTER → 2020-08-30 | Outpatient (REF) | payer MEDICAID | LOC: M SFHCWAGY 18:55 | PROVIDERS: ATTEND Obstetrics & Gynecology | DX: N90.89 Other specified noninflammatory disorders of vulva and perineum (principal) ==

== ENCOUNTER → 2020-08-30 | Outpatient (REF) | payer MEDICAID | LOC: M PLALAB 14:21 | PROVIDERS: ATTEND Obstetrics & Gynecology | DX: N90.89 Other specified noninflammatory disorders of vulva and perineum (principal) ==

== ENCOUNTER → 2021-02-23 | Outpatient (CLI) | payer MEDICAID ==
[~2021-02-23] MED LIST changes: -OLAN15TA PO; +OLAN15TA13 PO; +OLAN1TAB16 PO; -OLAN5TAB PO
[2021-02-23 15:27] LABS: HEMATOCRIT 46.6 % (36.0-47.0); HEMOGLOBIN 14.9 g/dl (12.0-15.5); MEAN CORPUSCULAR HEMOGLOBIN 30.1 pg (27.0-33.0); MEAN CORPUSCULAR VOLUME 94.1 fl (80.0-96.0); PLATELET COUNT, AUTOMATED 276 10^3/uL (150-450); RED BLOOD COUNT 4.95 10^6/uL (4.00-5.40); WHITE BLOOD COUNT 5.9 10^3/uL (4.0-10.0)
[2021-02-23 15:49] LABS: LYMPHOCYTES 52 % (16-44); MONOCYTES 7 % (0-5); NEUTROPHILS 41 % (28-66); PLATELET ESTIMATE NORMAL (NORMAL)
[2021-02-23 15:58] LABS: ALBUMIN 3.5 GM/DL (3.2-5.2); ALT/SGPT 41 U/L (12-78); BILIRUBIN,TOTAL 0.2 MG/DL (0.2-1.0); BLOOD UREA NITROGEN 6 MG/DL (7-18); CARBON DIOXIDE LEVEL 25 MEQ/L (21-32); CHLORIDE LEVEL 110 MEQ/L (98-107); CREATININE FOR GFR 0.42 MG/DL (0.55-1.30); GLOMERULAR FILTRATION RATE > 60.0 (>58); GLUCOSE, FASTING 80 MG/DL (70-100); LIPASE 125 U/L (73-393); POTASSIUM SERUM 4.7 MEQ/L (3.5-5.1); SODIUM LEVEL 139 MEQ/L (136-145); TOTAL PROTEIN 7.4 GM/DL (6.4-8.2)
== END ==
LOC: M PLALAB 12:10
PROVIDERS: ATTEND Student in an Organized Health Care Education/Training Program
DX: R10.33 Periumbilical pain (principal)

== ENCOUNTER → 2021-02-23 | Outpatient (CLI) | payer MEDICAID ==
[~2021-02-23] MED LIST changes: +GASTROGRAFIN SOLUTION 30ML (Q9963) ONE
--- NOTE | 2021-02-23 15:06 | REP ---
INDICATION: PERIUMBILICAL ABD PAIN. Patient gives a history of breast carcinoma. Prior cholecystectomy, appendectomy, left mastectomy, and hysterectomy. COMPARISON: Comparison CT study December 05, 2019. TECHNIQUE: I am informed we were unable to establish IV access for the contrast enhanced portion of the study which was anticipated. Noncontrast helical scanning is acquired and 3 mm axial images are generated. Coronal and sagittal MPR images are provided. Oral contrast is administered. 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 There are clips in right upper quadrant and throughout the pelvis. On axial CT images, the lung bases are essentially clear. No pleural effusion or upper abdominal ascites is seen. The liver and the spleen are normal in size homogeneous in texture. No pancreatic abnormality is seen. No adrenal abnormality is observed. The kidneys are morphologically intact. No hydronephrosis is seen on either side. No ureteral or bladder calculus is observed. Urinary bladder appears intact. Postoperative changes are seen in the anterior abdominal wall. No abdominal wall defect is seen. No obstructive gastrointestinal lesion is seen. No bony destructive lesion. IMPRESSION: Status post hysterectomy, appendectomy and cholecystectomy. No acute abdominal or pelvic abnormality <Electronically signed by Huan Sandoval > 02/23/21 [id number]
== END ==
LOC: M PLAIMG 12:04
PROVIDERS: ATTEND Student in an Organized Health Care Education/Training Program
DX: R10.33 Periumbilical pain (principal)
CPT/HCPCS: 74177; Q9963

== ENCOUNTER → 2021-03-04 | Outpatient (CLI) | payer MEDICAID ==
[~2021-03-04] MED LIST changes: -GASTROGRAFIN SOLUTION 30ML (Q9963) ONE
== END ==
LOC: M PLALAB 15:26
PROVIDERS: ATTEND Surgery
DX: C50.919 Malignant neoplasm of unspecified site of unspecified female breast (principal)

== ENCOUNTER 2021-03-14 12:19 | Outpatient (RCR) | payer MEDICAID | END 2021-03-17 | LOC: M PT 12:19 | PROVIDERS: ATTEND Student in an Organized Health Care Education/Training Program | DX: M54.5 Low back pain (principal) ==

== ENCOUNTER 2022-12-26 16:44 | Emergency (ER) | payer MEDICAID ==
[~2022-12-26] VITALS: Ht 167.6 cm; Wt 124.1 kg
[~2022-12-26 16:44] MED LIST changes: +ALBU2.5V10; +ALBU2.5V10 INH; -ALBU83IN; -ALBU83IN INH; -OMEP-221 PO; +OMEP40CA5 PO
[2022-12-26 16:45] VITALS: TEMP 97.5
[2022-12-26] MEDS ORDERED: OLAN20TA14 (18:57)
[2022-12-26 20:07] LABS: BASO % 0.3 % (0.0-1.0); EOS % 0.2 % (0.0-3.0); HEMATOCRIT 41.8 % (36.0-47.0); HEMOGLOBIN 13.7 g/dl (12.0-15.5); LYMPH # 2.6 10^3/uL (1.5-5.0); LYMPH % 39.5 % (24.0-44.0); MEAN CORPUSCULAR HEMOGLOBIN 30.7 pg (27.0-33.0); MEAN CORPUSCULAR HGB CONC 32.8 g/dl (32.0-36.5); MEAN CORPUSCULAR VOLUME 93.7 fl (80.0-96.0); MONO # 0.6 10^3/uL (0.0-0.8); MONO % 8.7 % (2.0-8.0); NEUTROPHILS # 3.4 10^3/uL (1.5-8.5); PLATELET COUNT, AUTOMATED 232 10^3/uL (150-450); RED BLOOD COUNT 4.46 10^6/uL (4.00-5.40); WHITE BLOOD COUNT 6.6 10^3/uL (4.0-10.0)
[2022-12-26 20:25] LABS: ERYTHROCYTE SEDIMENTATION RATE 42 mm/hr (0-20)
[2022-12-26] MEDS ORDERED: DOXY-443 PO (21:42)
[2022-12-26] MEDS ORDERED: DOXYCYCLINE HYCLATE 100MG TABLET PO ONE (21:45)
[2022-12-26 21:53] VITALS: BP 132/72; O2SAT 99
== END 2022-12-26 21:55 | disposition home or self-care (01) ==
LOC: M ED 16:44
DX: L03.116 Cellulitis of left lower limb (principal); R22.42 Localized swelling, mass and lump, left lower limb; R56.9 Unspecified convulsions; J44.9 Chronic obstructive pulmonary disease, unspecified; K21.9 Gastro-esophageal reflux disease without esophagitis; F17.200 Nicotine dependence, unspecified, uncomplicated; Z88.0 Allergy status to penicillin; Z88.5 Allergy status to narcotic agent; Z88.8 Allergy status to other drugs, medicaments and biological substances; Z91.018 Allergy to other foods; Z91.030 Bee allergy status; Z79.899 Other long term (current) drug therapy

== ENCOUNTER → 2023-03-20 | Outpatient (REF) | payer MEDICAID ==
[~2023-03-20] MED LIST changes: +DOXY-443 PO; +OLAN20TA14
== END ==
LOC: M LAB REF 18:41
PROVIDERS: ATTEND Family Medicine Addiction Medicine
DX: R11.2 Nausea with vomiting, unspecified (principal); R19.7 Diarrhea, unspecified

== ENCOUNTER → 2023-04-30 | Outpatient (REF) | payer MEDICAID ==
[2023-04-30 18:46] LABS: MAGNESIUM LEVEL 1.7 MG/DL (1.8-2.4)
[2023-04-30 18:50] LABS: FOLATE 3.9 NG/ML (>5.4)
== END ==
LOC: M LAB REF 16:43
PROVIDERS: ATTEND Nurse Practitioner Family
DX: R11.2 Nausea with vomiting, unspecified (principal); R19.7 Diarrhea, unspecified

== ENCOUNTER 2023-05-19 18:47 | Emergency (ER) | payer MEDICAID ==
[~2023-05-19] VITALS: Ht 167.6 cm; Wt 111.0 kg
[2023-05-19 18:58] VITALS: TEMP 98.3
[2023-05-19 19:57] LABS: BASO % 0.4 % (0.0-1.0); EOS % 0.1 % (0.0-3.0); HEMATOCRIT 45.5 % (36.0-47.0); HEMOGLOBIN 14.9 g/dl (12.0-15.5); LYMPH # 2.3 10^3/uL (1.5-5.0); MEAN CORPUSCULAR HEMOGLOBIN 29.7 pg (27.0-33.0); MEAN CORPUSCULAR HGB CONC 32.7 g/dl (32.0-36.5); MEAN CORPUSCULAR VOLUME 90.6 fl (80.0-96.0); MONO # 0.7 10^3/uL (0.0-0.8); MONO % 9.6 % (2.0-8.0); NEUTROPHILS # 4.3 10^3/uL (1.5-8.5); NEUTROPHILS % 58.6 % (36.0-66.0); PLATELET COUNT, AUTOMATED 252 10^3/uL (150-450); RED BLOOD COUNT 5.02 10^6/uL (4.00-5.40); WHITE BLOOD COUNT 7.3 10^3/uL (4.0-10.0)
[2023-05-19] MEDS ORDERED: NS 1,000 ML IV ONE (20:25)
[2023-05-19] MEDS ORDERED: MORPHINE 4 MG/ML 1ML VIAL IV ONE (20:25)
[2023-05-19] MEDS ORDERED: ONDANSETRON 4MG 2ML VIAL IV ONE (20:25)
[2023-05-19 21:09] LABS: INR 0.99; PROTHROMBIN TIME 12.8 SECONDS (12.5-14.5)
[2023-05-19 21:10] LABS: PARTIAL THROMBOPLASTIN TIME 30.9 SECONDS (24.8-34.2)
[2023-05-19 21:14] LABS: CK-MB VALUE MASS < 1.0 NG/ML (<3.6)
[2023-05-19 21:16] LABS: ALBUMIN 3.6 G/DL (3.2-5.2); ALKALINE PHOSPHATASE 117 U/L (46-116); ALT/SGPT 16 U/L (7.0-40); AST/SGOT 14 U/L (<34); BILIRUBIN,DIRECT < 0.1 MG/DL (<0.4); BILIRUBIN,TOTAL 0.2 MG/DL (0.3-1.2); BLOOD UREA NITROGEN 6 MG/DL (9-23); CALCIUM LEVEL 8.6 MG/DL (8.5-10.1); CARBON DIOXIDE LEVEL 22 MMOL/L (20-31); CHLORIDE LEVEL 109 MMOL/L (98-107); CREATININE FOR GFR 0.52 MG/DL (0.55-1.30); GLOMERULAR FILTRATION RATE > 60.0 (>58); GLUCOSE, FASTING 103 MG/DL (60-100); SODIUM LEVEL 141 MMOL/L (136-145)
[2023-05-19 21:18] LABS: FREE T4 0.89 NG/DL (0.89-1.76); THYROID STIMULATING HORMONE 1.725 uIU/ML (0.55-4.78)
[2023-05-19 21:19] LABS: CPK CREATINE PHOSPHOKINASE 41 U/L (34-145); MB/CK RELATIVE INDEX 2.43 (< OR =4)
[2023-05-19 22:00] VITALS: BP 138/78; O2SAT 96
[2023-05-19] MEDS ORDERED: ISOVUE-370 76% 100ML VIAL As Ordered ONE (22:09)
[2023-05-19] MEDS ORDERED: ONDA-83 PO (23:11)
[2023-05-19] MEDS ORDERED: CIPR-249 PO (23:11)
[2023-05-19] MEDS ORDERED: ACETAMINOPHEN TAB 650MG DOSE (2X325MG) PO ONE (23:55)
[2023-05-20] MEDS ORDERED: CIPROFLOXACIN 400 MG in IV 1 EA IV ONE ×2
[2023-05-20] MEDS ORDERED: NYST1POW9 TOP (00:42)
== END 2023-05-20 00:51 | disposition home or self-care (01) ==
LOC: M ED 18:47
DX: A08.4 Viral intestinal infection, unspecified (principal); A04.0 Enteropathogenic Escherichia coli infection; Z11.52 Encounter for screening for COVID-19; J45.909 Unspecified asthma, uncomplicated; K21.9 Gastro-esophageal reflux disease without esophagitis; G43.909 Migraine, unspecified, not intractable, without status migrainosus; F31.9 Bipolar disorder, unspecified; F90.9 Attention-deficit hyperactivity disorder, unspecified type; F43.10 Post-traumatic stress disorder, unspecified; Z88.0 Allergy status to penicillin; Z88.5 Allergy status to narcotic agent; Z88.8 Allergy status to other drugs, medicaments and biological substances; Z91.048 Other nonmedicinal substance allergy status; F17.200 Nicotine dependence, unspecified, uncomplicated; Z79.899 Other long term (current) drug therapy
CPT/HCPCS: 71046; 71275; 74177; 80048; 80076; 82550; 82553; 84439; 84443; 85025; 85610; 85730; 87486; 87507; 87581; 87633; 87798; 93005; 93041; 94760; 96361; 96365; 96375; 99285; J0744; J2405; Q9967

== ENCOUNTER → 2023-05-21 | Outpatient (REF) | payer MEDICAID ==
[~2023-05-21] MED LIST changes: +CIPR-249 PO; +NYST1POW9 TOP
[2023-05-22 14:34] LABS: IRON (FE) 67 UG/DL (50-170); PERCENT SATURATION 23.9 % (13.2-45.0); TOTAL IRON BINDING CAPACITY 280 UG/DL (250-425)
[2023-05-22 14:37] LABS: FERRITIN 47.1 NG/ML (7.3-270.7)
[2023-05-22 14:39] LABS: VITAMIN B12 LEVEL 394 PG/ML (211-911)
[2023-05-22 14:45] LABS: FOLATE > 24.0 NG/ML (>5.4)
== END ==
LOC: M LAB REF 13:44
PROVIDERS: ATTEND Nurse Practitioner Family
DX: R11.2 Nausea with vomiting, unspecified (principal); R20.2 Paresthesia of skin

== ENCOUNTER 2023-06-02 13:23 | Emergency (ER) | payer MEDICAID ==
[~2023-06-02] VITALS: Ht 167.6 cm; Wt 108.3 kg
[2023-06-02 13:23] VITALS: TEMP 98.9
[2023-06-02] MEDS ORDERED: TRAZ-257 (13:39)
[2023-06-02] MEDS ORDERED: ALPR0.5T3 (13:39)
[2023-06-02] MEDS ORDERED: HYDR-643 (13:39)
[2023-06-02 14:31] LABS: BASO % 0.4 % (0.0-1.0); HEMATOCRIT 42.1 % (36.0-47.0); HEMOGLOBIN 13.9 g/dl (12.0-15.5); LYMPH # 1.7 10^3/uL (1.5-5.0); LYMPH % 34.8 % (24.0-44.0); MEAN CORPUSCULAR HEMOGLOBIN 30.1 pg (27.0-33.0); MEAN CORPUSCULAR VOLUME 91.1 fl (80.0-96.0); MONO # 0.4 10^3/uL (0.0-0.8); MONO % 9.2 % (2.0-8.0); NEUTROPHILS # 2.7 10^3/uL (1.5-8.5); NEUTROPHILS % 55.2 % (36.0-66.0); PLATELET COUNT, AUTOMATED 251 10^3/uL (150-450); RED BLOOD COUNT 4.62 10^6/uL (4.00-5.40); WHITE BLOOD COUNT 4.8 10^3/uL (4.0-10.0)
[2023-06-02 14:52] LABS: INR 1.1; PROTHROMBIN TIME 13.9 SECONDS (12.5-14.5)
[2023-06-02 14:53] LABS: PARTIAL THROMBOPLASTIN TIME 29.7 SECONDS (24.8-34.2)
[2023-06-02 14:55] LABS: CK-MB VALUE MASS < 1.0 NG/ML (<3.6)
[2023-06-02 14:56] LABS: LIPASE 31 U/L (12-53)
[2023-06-02 14:58] LABS: ALBUMIN 3.5 G/DL (3.2-5.2); ALKALINE PHOSPHATASE 96 U/L (46-116); ALT/SGPT 22 U/L (7.0-40); AST/SGOT 29 U/L (<34); BILIRUBIN,DIRECT < 0.1 MG/DL (<0.4); BILIRUBIN,TOTAL 0.2 MG/DL (0.3-1.2); BLOOD UREA NITROGEN 7 MG/DL (9-23); CALCIUM LEVEL 8.9 MG/DL (8.5-10.1); CARBON DIOXIDE LEVEL 22 MMOL/L (20-31); CHLORIDE LEVEL 112 MMOL/L (98-107); CREATININE FOR GFR 0.42 MG/DL (0.55-1.30); GLOMERULAR FILTRATION RATE > 60.0 (>58); GLUCOSE, FASTING 96 MG/DL (60-100); POTASSIUM SERUM 4.7 MMOL/L (3.5-5.1); SODIUM LEVEL 140 MMOL/L (136-145); TOTAL PROTEIN 6.5 G/DL (5.7-8.2)
[2023-06-02 15:01] LABS: CPK CREATINE PHOSPHOKINASE 48 U/L (34-145); MB/CK RELATIVE INDEX 2.08 (< OR =4)
[2023-06-02] MEDS ORDERED: ACETAMINOPHEN TAB 650MG DOSE (2X325MG) PO ONE (16:30)
[2023-06-02] MEDS ORDERED: NS 1,000 ML IV ONE (16:35)
[2023-06-02 19:25] VITALS: BP 141/84; O2SAT 97
== END 2023-06-02 19:48 | disposition home or self-care (01) ==
LOC: M ED 13:23
DX: A08.11 Acute gastroenteropathy due to Norwalk agent (principal); Z79.899 Other long term (current) drug therapy; Z88.0 Allergy status to penicillin; Z88.5 Allergy status to narcotic agent; Z88.8 Allergy status to other drugs, medicaments and biological substances; Z91.030 Bee allergy status; Z91.018 Allergy to other foods; Z91.89 Other specified personal risk factors, not elsewhere classified

== ENCOUNTER → 2023-06-05 | Outpatient (CLI) | payer MEDICAID ==
[~2023-06-05] MED LIST changes: +ALPR0.5T3; +HYDR-643; +TRAZ-257
== END ==
LOC: M WHC 12:18
PROVIDERS: ATTEND Nurse Practitioner Family
DX: G89.28 Other chronic postprocedural pain (principal)

== ENCOUNTER → 2023-08-22 | Outpatient (CLI) | payer MEDICAID ==
[~2023-08-22] MED LIST changes: +RISP-105 PO; -RISP-8 PO
== END ==
LOC: M WHC 08:51
PROVIDERS: ATTEND Nurse Practitioner Family
DX: M81.0 Age-related osteoporosis without current pathological fracture (principal); M85.88 Other specified disorders of bone density and structure, other site

== ENCOUNTER → 2023-09-21 | Outpatient (CLI) | payer MEDICAID ==
[2023-09-21 14:46] LABS: BASO % 0.3 % (0.0-1.0); EOS % 0.2 % (0.0-3.0); HEMATOCRIT 42.9 % (36.0-47.0); HEMOGLOBIN 13.9 g/dl (12.0-15.5); LYMPH # 1.9 10^3/uL (1.5-5.0); LYMPH % 31.6 % (24.0-44.0); MEAN CORPUSCULAR HEMOGLOBIN 29.9 pg (27.0-33.0); MEAN CORPUSCULAR HGB CONC 32.4 g/dl (32.0-36.5); MEAN CORPUSCULAR VOLUME 92.3 fl (80.0-96.0); MONO # 0.5 10^3/uL (0.0-0.8); MONO % 9.1 % (2.0-8.0); NEUTROPHILS # 3.4 10^3/uL (1.5-8.5); NEUTROPHILS % 58.5 % (36.0-66.0); PLATELET COUNT, AUTOMATED 214 10^3/uL (150-450); RED BLOOD COUNT 4.65 10^6/uL (4.00-5.40); WHITE BLOOD COUNT 5.9 10^3/uL (4.0-10.0)
[2023-09-21 15:17] LABS: PHENOBARBITAL LEVEL 21.5 UG/ML (15.0-40.0)
[2023-09-21 15:19] LABS: ALBUMIN 3.4 G/DL (3.2-5.2); ALKALINE PHOSPHATASE 127 U/L (46-116); ALT/SGPT 14 U/L (7.0-40); AST/SGOT 11 U/L (<34); BILIRUBIN,TOTAL 0.2 MG/DL (0.3-1.2); BLOOD UREA NITROGEN 8 MG/DL (9-23); CALCIUM LEVEL 8.9 MG/DL (8.5-10.1); CARBON DIOXIDE LEVEL 24 MMOL/L (20-31); CHLORIDE LEVEL 109 MMOL/L (98-107); CREATININE FOR GFR 0.48 MG/DL (0.55-1.30); GLOMERULAR FILTRATION RATE > 60.0 (>58); GLUCOSE, FASTING 117 MG/DL (60-100); POTASSIUM SERUM 4.1 MMOL/L (3.5-5.1); SODIUM LEVEL 140 MMOL/L (136-145); TOTAL PROTEIN 6.6 G/DL (5.7-8.2)
== END ==
LOC: M LAB 13:42
PROVIDERS: ATTEND Nurse Practitioner Family
DX: R25.2 Cramp and spasm (principal); G80.8 Other cerebral palsy; G40.209 Localization-related (focal) (partial) symptomatic epilepsy and epileptic syndromes with complex partial seizures, not intractable, without status epilepticus; F82 Specific developmental disorder of motor function; F81.89 Other developmental disorders of scholastic skills; F80.89 Other developmental disorders of speech and language; G43.011 Migraine without aura, intractable, with status migrainosus; G40.309 Generalized idiopathic epilepsy and epileptic syndromes, not intractable, without status epilepticus

== ENCOUNTER 2023-09-25 12:57 | Emergency (ER) | payer OTHER, MEDICAID ==
[~2023-09-25] VITALS: Ht 167.6 cm; Wt 115.5 kg
[2023-09-25] MEDS ORDERED: METH-1164 PO (19:58)
[2023-09-25 20:12] VITALS: BP 143/88; TEMP 97.8; O2SAT 98
== END 2023-09-25 20:15 | disposition home or self-care (01) ==
LOC: M ED 12:57
DX: S80.02XA Contusion of left knee, initial encounter (principal); S13.4XXA Sprain of ligaments of cervical spine, initial encounter; S33.5XXA Sprain of ligaments of lumbar spine, initial encounter; V43.62XA Car passenger injured in collision with other type car in traffic accident, initial encounter; Y92.9 Unspecified place or not applicable; Y93.9 Activity, unspecified; Y99.9 Unspecified external cause status; R56.9 Unspecified convulsions; J45.909 Unspecified asthma, uncomplicated; J44.9 Chronic obstructive pulmonary disease, unspecified; K21.9 Gastro-esophageal reflux disease without esophagitis; F41.9 Anxiety disorder, unspecified; F32.A Depression, unspecified; F31.9 Bipolar disorder, unspecified; F90.9 Attention-deficit hyperactivity disorder, unspecified type; F43.10 Post-traumatic stress disorder, unspecified; F17.200 Nicotine dependence, unspecified, uncomplicated; Z87.442 Personal history of urinary calculi; Z87.440 Personal history of urinary (tract) infections; Z85.3 Personal history of malignant neoplasm of breast; Z79.899 Other long term (current) drug therapy; Z88.0 Allergy status to penicillin; Z88.5 Allergy status to narcotic agent; Z88.8 Allergy status to other drugs, medicaments and biological substances; Z91.018 Allergy to other foods; Z91.030 Bee allergy status; Z91.89 Other specified personal risk factors, not elsewhere classified

== ENCOUNTER → 2023-10-05 | Outpatient (CLI) | payer MEDICAID ==
[~2023-10-05] MED LIST changes: +METH-1164 PO
== END ==
LOC: M PLARAD 09:30
PROVIDERS: ATTEND Nurse Practitioner Family
DX: G43.011 Migraine without aura, intractable, with status migrainosus (principal); G40.309 Generalized idiopathic epilepsy and epileptic syndromes, not intractable, without status epilepticus

== ENCOUNTER → 2023-11-01 | Outpatient (REF) | payer MEDICAID ==
[~2023-11-01] MED LIST changes: +DOXY-323 PO; -DOXY-443 PO
== END ==
LOC: M LAB REF 13:12
PROVIDERS: ATTEND Physician Assistant
DX: R19.7 Diarrhea, unspecified (principal)

== ENCOUNTER 2024-12-31 02:42 | Inpatient (IN) | payer MEDICAID ==
[~2024-12-31] VITALS: Ht 167.6 cm; Wt 131.4 kg
[~2024-12-31 02:42] MED LIST changes: +ADVA1AER9 INH; -ALPR0.5T3; +ALPR0.5T3 PO; -CYCL5TAB PO; +CYCL5TAB4 PO; +DIVA-41 PO; -DIVA500T94 PO; -DOXY-323 PO; +DOXY-441 PO; -FLOM0.4C39 PO; +FLUO1TAB4 PO; -FLUO20TA28 PO; +NYST1POW3 TOP; -NYST1POW9 TOP; -OLAN15TA13 PO; +OLAN15TA69 PO; -OLAN20TA14; +OLAN20TA53; +TAMS-18 PO; +TOPI-257 PO; -TOPI100T9 PO; -TRAZ-257
[2024-12-31] MEDS: ONDANSETRON 4MG 2ML VIAL IV ONE (05:49)
[2024-12-31] MEDS: NS (Normal Saline) 0.9% 1,000 ML IV ONE (05:49)
[2024-12-31 06:07] LABS: BASO # 0.0 10^3/uL (0.0-0.2); BASO % 0.1 % (0.0-1.0); EOS # 0.0 10^3/uL (0.0-0.5); EOS % 0.0 % (0.0-3.0); LYMPH # 2.7 10^3/uL (1.5-5.0); LYMPH % 22.8 % (24.0-44.0); MONO # 1.0 10^3/uL (0.0-0.8); MONO % 8.4 % (2.0-8.0); NEUTROPHILS # 8.0 10^3/uL (1.5-8.5); NEUTROPHILS % 68.2 % (36.0-66.0); PLATELET COUNT, AUTOMATED 270 10^3/uL (150-450)
[2024-12-31] MEDS: MORPHINE 4 MG/ML 1 ML VIAL IV PRN (06:22)
[2024-12-31 06:34] LABS: ALT/SGPT 27 U/L (7.0-40); AST/SGOT 32 U/L (<34); CALCIUM LEVEL 9.9 MG/DL (8.5-10.1); CARBON DIOXIDE LEVEL 24 MMOL/L (20-31); CHLORIDE LEVEL 103 MMOL/L (98-107); CK-MB VALUE MASS 1.0 NG/ML (<3.6); CREATININE FOR GFR 0.51 MG/DL (0.55-1.30); GLOMERULAR FILTRATION RATE > 90.0 (>51); POTASSIUM SERUM 4.1 MMOL/L (3.5-5.1); SODIUM LEVEL 140 MMOL/L (136-145)
[2024-12-31] MEDS ORDERED: ISOVUE-370 76% 100 ML VIAL As Ordered ONE (06:53)
[2024-12-31 07:03] LABS: CPK CREATINE PHOSPHOKINASE 40 U/L (34-145); MB/CK RELATIVE INDEX 2.50 (< OR =4)
[2024-12-31] MEDS ORDERED: ONDA-83 PO (08:47)
[2024-12-31] MEDS ORDERED: VENL75CA47 PO (08:47)
[2024-12-31] MEDS ORDERED: VENTAER INH (08:47)
[2024-12-31] MEDS ORDERED: SUMA100T2 PO (08:47)
[2024-12-31] MEDS ORDERED: CLON-412 PO (08:47)
[2024-12-31] MEDS ORDERED: NYST1POW3 TOP (08:47)
[2024-12-31] MEDS ORDERED: LIDO1PAD TOP (08:47)
[2024-12-31] MEDS ORDERED: ALEN10TA5 PO (08:47)
[2024-12-31] MEDS ORDERED: ALBU2.5V10 NEB (08:47)
[2024-12-31] MEDS ORDERED: HOME MED LIST COMPLETE! XX SCH (08:50)
[2024-12-31] MEDS ORDERED: ALBUTEROL 90 MCG/ACT 8 GM HFA INHALER INH PRN (08:55)
[2024-12-31] MEDS ORDERED: ONDANSETRON 4MG TAB PO PRN (08:55)
[2024-12-31] MEDS ORDERED: traZODone 100 MG TAB PO PRN (08:55)
[2024-12-31 09:45] LABS: IONIZED CALCIUM 4.6 MG/DL (4.5-5.3)
[2024-12-31] MEDS: ALPRAZolam 0.5 MG TAB PO SCH (09:45)
[2024-12-31] MEDS: PANTOPRAZOLE 40MG VIAL IV ONE (09:45)
[2024-12-31] MEDS: LIDOCAINE 5% PATCH TOP SCH (09:46)
[2024-12-31] MEDS: LR 1,000 ML IV ONE ×2 (09:46→11:39)
[2024-12-31 10:08] LABS: CK-MB VALUE MASS 2.1 NG/ML (<3.6)
[2024-12-31 10:09] LABS: MAGNESIUM LEVEL 1.6 MG/DL (1.8-2.4)
[2024-12-31 10:10] LABS: C REACTIVE PROTEIN QUANTITATIV 1.46 MG/DL (<1.0); CPK CREATINE PHOSPHOKINASE 45 U/L (34-145); MB/CK RELATIVE INDEX 4.66 (< OR =4)
[2024-12-31 16:03] VITALS: BP 135/88; TEMP 97; O2SAT 96
[2024-12-31 18:51] LABS: IONIZED CALCIUM 4.6 MG/DL (4.5-5.3)
[2024-12-31] MEDS: NS 0.45% 1,000 ML IV SCH (19:07)
[2024-12-31 19:22] LABS: CK-MB VALUE MASS 1.3 NG/ML (<3.6)
[2024-12-31 19:26] LABS: CALCIUM LEVEL 8.2 MG/DL (8.5-10.1); CARBON DIOXIDE LEVEL 27 MMOL/L (20-31); CHLORIDE LEVEL 106 MMOL/L (98-107); CPK CREATINE PHOSPHOKINASE 39 U/L (34-145); CREATININE FOR GFR 0.53 MG/DL (0.55-1.30); GLOMERULAR FILTRATION RATE > 90.0 (>51); MAGNESIUM LEVEL 1.7 MG/DL (1.8-2.4); MB/CK RELATIVE INDEX 3.33 (< OR =4); PHOSPHORUS LEVEL 3.7 MG/DL (2.5-4.9); POTASSIUM SERUM 4.0 MMOL/L (3.5-5.1); SODIUM LEVEL 144 MMOL/L (136-145)
[2024-12-31 20:51] VITALS: BP 118/67; TEMP 97.3; O2SAT 96
[2024-12-31] MEDS: VENLAFAXINE **XR** 75MG CAPSULE PO SCH (20:55)
[2024-12-31] MEDS: CALCIUM GLUCONATE 1,000 MG in DEXTROSE 5% (D5W) MINI-BAG PLU 100 ML IV ONE (20:57)
[2024-12-31] MEDS: MAG SULF 1GM/100ML (MAG RUN) 1 GM in IV 1 EA IV ONE (22:47)
[2025-01-01] MEDS ORDERED: NALOXONE INJ 0.4 MG/1 ML VIAL IV PRN
[2025-01-01] MEDS: MORPHINE 2 MG/ML 1 ML VIAL IV PRN (00:33)
[2025-01-01] MEDS: ACETAMINOPHEN *IV* 1,000 MG in IV 1 EA IV SCH (00:39)
[2025-01-01 03:47] VITALS: BP 131/79; TEMP 96.8; O2SAT 95
[2025-01-01 04:00] VITALS: BP 131/79; TEMP 96.8; O2SAT 95
[2025-01-01] MEDS: PANTOPRAZOLE 40MG VIAL IV SCH (08:21)
[2025-01-01 11:55] VITALS: BP 131/76; TEMP 97.2; O2SAT 96
[2025-01-01] MEDS: PERCOCET 5MG/325MG TAB PO ONE (12:17)
[2025-01-01] MEDS: MORPHINE 4 MG/ML 1 ML VIAL IV PRN (14:20)
[2025-01-01] MEDS: DICYCLOMINE 10 MG CAP PO SCH (20:49)
[2025-01-01 21:01] VITALS: BP 147/89; TEMP 97.2; O2SAT 95
[2025-01-02 04:36] VITALS: BP 126/73; TEMP 97; O2SAT 97
[2025-01-02] MEDS ORDERED: OXYC1TAB23 PO (14:25)
== END 2025-01-02 14:01 | disposition home or self-care (01) | DRG 247 ==
LOC: M ED 02:42 → EDBD 02:42 → EEVIPCON 08:49 → M ED INP 08:49 → M MSPAV 15:49
PROVIDERS: ADMIT General Practice; ATTEND General Practice
DX: K56.600 Partial intestinal obstruction, unspecified as to cause (principal); Z68.42 Body mass index [BMI] 45.0-49.9, adult; K76.0 Fatty (change of) liver, not elsewhere classified; E66.01 Morbid (severe) obesity due to excess calories; R16.2 Hepatomegaly with splenomegaly, not elsewhere classified; K29.70 Gastritis, unspecified, without bleeding; J98.11 Atelectasis; G47.33 Obstructive sleep apnea (adult) (pediatric); J45.909 Unspecified asthma, uncomplicated; J44.9 Chronic obstructive pulmonary disease, unspecified; G40.909 Epilepsy, unspecified, not intractable, without status epilepticus; G43.909 Migraine, unspecified, not intractable, without status migrainosus; F17.200 Nicotine dependence, unspecified, uncomplicated; F31.9 Bipolar disorder, unspecified; K43.9 Ventral hernia without obstruction or gangrene; Z90.12 Acquired absence of left breast and nipple; Z85.44 Personal history of malignant neoplasm of other female genital organs; Z90.49 Acquired absence of other specified parts of digestive tract; Z85.3 Personal history of malignant neoplasm of breast; Z79.899 Other long term (current) drug therapy; Z88.0 Allergy status to penicillin; Z88.5 Allergy status to narcotic agent; Z88.8 Allergy status to other drugs, medicaments and biological substances; Z91.018 Allergy to other foods; Z91.048 Other nonmedicinal substance allergy status; Z91.030 Bee allergy status

== ENCOUNTER → 2025-01-08 | Outpatient (CLI) | payer MEDICAID ==
[~2025-01-08] MED LIST changes: +ALBU2.5V10 NEB; +ALEN10TA5 PO; +CLON-412 PO; +LIDO1PAD TOP; +SUMA100T2 PO; +VENL75CA47 PO; +VENTAER INH
== END ==
LOC: M RAD 16:42
PROVIDERS: ATTEND Physician Assistant
DX: R07.81 Pleurodynia (principal); W19.XXXA Unspecified fall, initial encounter

== ENCOUNTER → 2025-02-11 | Outpatient (CLI) | payer MEDICAID | LOC: M PLAIMG 11:08 | PROVIDERS: ATTEND Physician Assistant | DX: R07.89 Other chest pain (principal); R91.8 Other nonspecific abnormal finding of lung field; I25.10 Atherosclerotic heart disease of native coronary artery without angina pectoris; M47.815 Spondylosis without myelopathy or radiculopathy, thoracolumbar region; I70.0 Atherosclerosis of aorta; R59.0 Localized enlarged lymph nodes; Z90.49 Acquired absence of other specified parts of digestive tract ==

== ENCOUNTER → 2025-03-26 | Outpatient (REF) | payer MEDICAID ==
[~2025-03-26] MED LIST changes: +ACET-683 PO; +MAGN400T35 PO
[2025-03-26 16:31] LABS: BASO # 0.0 10^3/uL (0.0-0.2); BASO % 0.2 % (0.0-1.0); EOS # 0.0 10^3/uL (0.0-0.5); EOS % 0.0 % (0.0-3.0); LYMPH # 2.2 10^3/uL (1.5-5.0); LYMPH % 34.0 % (24.0-44.0); MONO # 0.5 10^3/uL (0.0-0.8); MONO % 8.1 % (2.0-8.0); NEUTROPHILS # 3.8 10^3/uL (1.5-8.5); NEUTROPHILS % 57.2 % (36.0-66.0); PLATELET COUNT, AUTOMATED 186 10^3/uL (150-450)
[2025-03-26 16:47] LABS: INR 0.95
[2025-03-26 17:08] LABS: APPEARANCE, URINE CLEAR (CLEAR); BACTERIA, URINE AUTO NEGATIVE (NEGATIVE); BILIRUBIN, URINE AUTO NEGATIVE (NEGATIVE); BLOOD, URINE BLOOD NEGATIVE (NEGATIVE); GLUCOSE, URINE (UA) AUTO NEGATIVE (NEGATIVE); KETONE, URINE AUTO NEGATIVE (NEGATIVE); LEUKOCYTE ESTERASE, URINE AUTO NEGATIVE (NEGATIVE); MUCUS, URINE SMALL (NEGATIVE); NITRITE, URINE AUTO NEGATIVE (NEGATIVE); PROTEIN, URINE AUTO NEGATIVE (NEGATIVE); RBC, URINE AUTO 0 /HPF (0-3); SPECIFIC GRAVITY URINE AUTO 1.009 (1.002-1.035); SQUAMOUS EPITHELIAL CELL UR AU 2 /HPF (0-6); UROBILINOGEN, URINE AUTO 0.2 mg/dL (0.0-2.0); WBC, URINE AUTO 1 /HPF (0-3)
== END ==
LOC: M LAB REF 16:15
PROVIDERS: ATTEND Physician Assistant
DX: Z01.818 Encounter for other preprocedural examination (principal)